=== PATIENT | female | born 1985 | race American Indian/Alaskan Native ===

== ENCOUNTER 2019-04-27 15:46 | Emergency (ER) | payer MEDICAID, SELFPAY ==
[2019-04-27 15:44] VITALS: BP 187/122; PULSE 162; RESP 24; TEMP 37.7; O2SAT 97
[2019-04-27 16:24] LABS: Add Manual Diff / Slide Review NO; Basophils Absolute Auto 100 /uL (0-100); Basophils Percent Auto 0.5 % (0-2); Eosinophils Absolute Auto 0 /uL (0-450); Eosinophils Percent Auto 0.3 % (2-4); Hematocrit 50.8 % (36-46); Hemoglobin 17.4 g/dL (12.0-16.0); Lymphocytes Absolute Auto 1200 /uL (1100-4500); Lymphocytes Percent Auto 10.5 % (25-40); Mean Corpuscular HGB Conc 34.2 % (30-36); Mean Corpuscular Hemoglobin 32.1 PG (26-34); Mean Corpuscular Volume 93.8 fL (80-100); Monocytes Absolute Auto 800 /uL (0-900); Monocytes Percent Auto 7.3 % (3-14); Neutrophils Absolute Auto 9100 /uL (1500-7000); Neutrophils Percent Auto 81.4 % (50-75); Platelet Count 266 X10^3/uL (150-400); Red Blood Cell Count 5.42 X10^6/uL (4.0-5.2); White Blood Cell Count 11.1 X10^3/uL (4.5-11.0)
[2019-04-27 16:39] LABS: Lithium < 0.2 mmol/L (0.6-1.2)
[2019-04-27 16:43] LABS: Prothrombin Time 11.3 SECONDS (10.1-12.7)
[2019-04-27 16:45] LABS: Acetaminophen < 10 ug/mL (10-30); Alanine Aminotransferase 217 IU/L (9-52); Albumin Globulin Ratio 1.5 (1.0-2.8); Alkaline Phosphatase 121 U/L (38-126); Aspartate Aminotransferase 270 IU/L (14-36); BUN Creatinine Ratio 6.3 (6-22); Bilirubin Total 2.1 mg/dL (0.2-1.3); Blood Urea Nitrogen 5 mg/dL (7-17); Carbon Dioxide 21 mmol/L (22-32); Chloride 100 mmol/L (98-107); Estimated Glomerular Filt Rate > 60.0 mL/min (>60); Ethanol (ETOH) < 10 mg/dL; Globulin 3.4 g/dL (1.7-4.1); Glucose 128 mg/dL (70-100); HEMOLYSIS < 15 (0-50); PTT Partial Thromboplastin Tim 32 SECONDS (26.4-36.2); Potassium 3.1 mmol/L (3.4-5.1); Salicylate < 1.0 mg/dL (<20); Sodium 139 mmol/L (137-145); Total Protein 8.4 g/dL (6.3-8.2)
[2019-04-27 16:46] LABS: Phenytoin / Dilantin < 3.0 ug/mL (10-20)
[2019-04-27 16:51] LABS: Lactate (Lactic Acid) 4.2 mmol/L (0.7-2.1)
--- NOTE | 2019-04-27 16:55 | PC.NURSE ---
lactate level received via phone call from amber at lab, lactate level 4.5, practitioner and primary nurse notified
[2019-04-27] MEDS: SODIUM CHLORIDE 0.9% 1,000 ML 150 ML IV (17:07)
[2019-04-27 17:13] LABS: Thyroid Stimulating Hormone 1.61 uIU/mL (0.47-4.68)
[2019-04-27] MEDS: POTASSIUM CHLORIDE 20 MEQ/15 ML UDC 40 MEQ PO (17:13)
[2019-04-27] MEDS: LORazepam 2 MG/ML INJ 1 MG IV (17:13)
--- NOTE | 2019-04-27 17:15 | ED_ITS ---
HPI - Psych <Edvin LauMAHNAZ - Last Filed: 04/27/19 23:28> General Chief Complaint: Psychiatric Symptoms Stated Complaint: Involuntary Time Seen by Provider: 04/27/19 15:51 Source: police Mode of arrival: Ambulatory Limitations: altered mental status History of Present Illness HPI Narrative: This is a 33-year-old female who was brought in while handcuffed by [employer] officers for an evaluation with altered mental status. [employer] was called by the patient's neighbor after hearing patient is screaming non- sensible comments and found her two young children running around unattended. Upon patient's arrival to room 13, found patient pacing around in the room and mumbling, I don't know what to do and appears to be she was having a conversation or having a visual and/or auditory hallucinations, patient told to triage and primary RNs that she would like to drink and to be in [place] [employer]. Patient denied taking other drugs or alcohol ingestions but stated to the police surgeon about taking Gabapentine for the chronic back pain. Otherwise, she does not answer to the questions. According to the patient's roommate/friend, this is out of her characteristics. Related Data Home Medications Medication Instructions Recorded Confirmed Unobtainable 04/27/19 04/27/19 Allergies Allergy/AdvReac Type Severity Reaction Status Date / Time No Known Drug Allergies Allergy Verified 04/27/19 21:13 Review of Systems <Edvin LauMAHNAZ - Last Filed: 04/27/19 23:28> Review of Systems Narrative: General: Denies fever, chills, fatigue, malaise, sweats. HEENT: Denies sinus pain, ear pain, sore throat, difficulty swallowing, dizziness. Respiratory: Denies dyspnea, cough, wheezing, hemoptysis, sputum. Cardiovascular: Denies chest pain, palpitations, orthopnea, edema. Gastrointestinal: Denies nausea, vomiting, abdominal pain, diarrhea, constipation, melena. : Denies dysuria, frequency, incontinence, hematuria, urinary retention. Musculoskeletal: Denies weakness, joint pain or bony pain. Skin: Denies rash, skin lesions, or other. Neurologic: Denies weakness, headache, numbness, change in speech, confusion, seizures, incoordination. Psychiatric: Auditory and visual hallucination. Has not been sleeping for last a few days due to stress. Reports history of anxiety and depression. 12-point review of systems is negative except for those stated above. PFSH <MAHNAZ Brumfield - Last Filed: 04/27/19 23:28> Medical History Anxiety (Acute) Back pain (Acute) Depression (Acute) Exam <MAHNAZ Brumfield - Last Filed: 04/27/19 23:28> Narrative Exam Narrative: GEN: Patient and pacing around the room and guarding. Head: Normal cephalic, atraumatic. No scalp or temporal tenderness, palpable mass or rash. EYES: Pupils are equal 5mm, round, and reactive to light and accommodation. Extraocular muscles are intact bilaterally. There is no subconjunctival hemorrhage, exudate and sclera non-icteric. Neck: Trachea in midline. No JVD, non-tender without lymphadenopathy. No masses or thyroid megaly. Supple, non-tender and no meningeal signs. CARDIAC: Normal regular rate and rhythm without murmurs, gallops, or rubs. No chest wall tenderness. No peripheral edema, cyanosis or pallor. Capillary refill is less than 2 seconds. RESPIRATORY: Lungs are cleat to auscultate bilaterally. No cough, wheezes, rales, or rhonchi. No stridor, respiratory distress, increase work of breathing, or accessary muscle used. ABD: Abdomen soft, nontender and non-distended. No guarding or rebound tenderness to palpate. Bowel sounds are normal in all 4 quadrants. There is no palpable masses or organomegaly. EXT: Full painless ROM of all extremities with no loss of sensation, strength, effusion or edema. SKIN: Warm, dry, flushed appearance. No erythema, lesions or rash over visible areas. BACK: Nontender without deformity or crepitance. No flank tenderness. NEUROLOGICAL: Sensation and motor function intact bilaterally. No facial droops, dysphasia. PSYCHIATRIC: Appears to be having auditory and visual hallucinations. Paranoid and pacing around the room. Initial Vital Signs Initial Vital Signs: Vital Signs Temperature 99.8 F H 04/27/19 15:44 Pulse Rate 162 H 04/27/19 15:44 Respiratory Rate 24 04/27/19 15:44 Blood Pressure 187/122 H 04/27/19 15:44 Pulse Oximetry 97 04/27/19 15:44 <Jonny Archer DO - Last Filed: 05/05/19 00:07> Initial Vital Signs Initial Vital Signs: Vital Signs Temperature 99.8 F H 04/27/19 15:44 Pulse Rate 162 H 04/27/19 15:44 Respiratory Rate 24 04/27/19 15:44 Blood Pressure 187/122 H 04/27/19 15:44 Pulse Oximetry 97 04/27/19 15:44 Course <MAHNAZ Brumfield - Last Filed: 04/27/19 23:28> Orders Ordered: Discontinued Medications Acetaminophen (Tylenol) 650 mg PO NOW ONE Stop: 04/27/19 23:01 Last Admin: 04/27/19 23:07 Dose: 650 mg Documented by: KATIE Sodium Chloride (Normal Saline 0.9%) 1,000 mls @ 150 mls/hr IV CONT ALINE Last Admin: 04/27/19 17:07 Dose: 150 mls/hr Documented by: KATIE Ibuprofen (Advil) 800 mg PO NOW ONE Stop: 04/27/19 23:01 Last Admin: 04/27/19 23:08 Dose: 800 mg Documented by: KATIE Lorazepam (Ativan) 1 mg IV PRN PRN PRN Reason: Agitation Last Admin: 04/27/19 17:13 Dose: 1 mg Documented by: KATIE Lorazepam (Ativan) 1 mg PO NOW ONE Stop: 04/27/19 22:54 Last Admin: 04/27/19 23:08 Dose: 1 mg Documented by: KATIE Nicotine (Nicoderm) 14 mg TOP NOW ONE Stop: 04/27/19 20:54 Last Admin: 04/27/19 21:13 Dose: 14 mg Documented by: KATIE Potassium Chloride (Potassium Chloride) 40 meq PO NOW ONE Stop: 04/27/19 17:11 Last Admin: 04/27/19 17:13 Dose: 40 meq Documented by: KATIE Vital Signs Vital signs: Vital Signs - 8 hr 04/27/19 15:44 04/27/19 17:31 04/27/19 18:53 Temperature 99.8 F H 99.8 F H Pulse Rate 162 H 111 H 108 H Respiratory Rate 24 18 17 Blood Pressure 187/122 H Blood Pressure [Right Arm] 158/109 H 128/78 Pulse Oximetry 97 98 95 <Jonny Archer DO - Last Filed: 05/05/19 00:07> Orders Ordered: Discontinued Medications Acetaminophen (Tylenol) 650 mg PO NOW ONE Stop: 04/27/19 23:01 Last Admin: 04/27/19 23:07 Dose: 650 mg Documented by: KATIE Sodium Chloride (Normal Saline 0.9%) 1,000 mls @ 150 mls/hr IV CONT ALINE Last Admin: 04/27/19 17:07 Dose: 150 mls/hr Documented by: KATIE Ibuprofen (Advil) 800 mg PO NOW ONE Stop: 04/27/19 23:01 Last Admin: 04/27/19 23:08 Dose: 800 mg Documented by: KAITE Lorazepam (Ativan) 1 mg IV PRN PRN PRN Reason: Agitation Last Admin: 04/27/19 17:13 Dose: 1 mg Documented by: KATIE Lorazepam (Ativan) 1 mg PO NOW ONE Stop: 04/27/19 22:54 Last Admin: 04/27/19 23:08 Dose: 1 mg Documented by: KATIE Nicotine (Nicoderm) 14 mg TOP NOW ONE Stop: 04/27/19 20:54 Last Admin: 04/27/19 21:13 Dose: 14 mg Documented by: KATIE Potassium Chloride (Potassium Chloride) 40 meq PO NOW ONE Stop: 04/27/19 17:11 Last Admin: 04/27/19 17:13 Dose: 40 meq Documented by: KATIE Vital Signs Vital signs: Vital Signs - 8 hr 04/27/19 15:44 04/27/19 17:31 04/27/19 18:53 Temperature 99.8 F H 99.8 F H Pulse Rate 162 H 111 H 108 H Respiratory Rate 24 18 17 Blood Pressure 187/122 H Blood Pressure [Right Arm] 158/109 H 128/78 Pulse Oximetry 97 98 95 MDM - Psych <MAHNAZ Brumfield - Last Filed: 04/27/19 23:28> Differential Diagnosis Differential diagnosis: Likely acute psychosis, bipolar disorder, depression and other Medical Records Attestation: I reviewed the patient's medical records. Lab Data Attestation: I reviewed the patient's lab results. Result diagrams: 04/27/19 16:10 04/27/19 16:10 Labs: Lab Results 04/27/19 04/27/19 04/27/19 Range/Units 16:10 16:10 16:10 WBC 11.1 H (4.5-11.0) X10^3/uL RBC 5.42 H (4.0-5.2) X10^6/uL Hgb 17.4 H (12.0-16.0) g/dL Hct 50.8 H (36-46) % MCV 93.8 (80-100) fL MCH 32.1 (26-34) PG MCHC 34.2 (30-36) % RDW 13.0 (11.6-14.8) % Plt Count 266 (150-400) X10^3/uL Neut % (Auto) 81.4 H (50-75) % Lymph % (Auto) 10.5 L (25-40) % [place] % (Auto) 7.3 (3-14) % Eos % (Auto) 0.3 L (2-4) % Baso % (Auto) 0.5 (0-2) % Neut # (Auto) 9100 H (6168-6284) /uL Lymph # (Auto) 1200 (3353-1552) /uL [place] # (Auto) 800 (0-900) /uL Eos # (Auto) 0 (0-450) /uL Baso # (Auto) 100 (0-100) /uL PT (10.1-12.7) SECONDS INR (0.9-1.3) APTT (26.4-36.2) SECONDS Sodium 139 (137-145) mmol/L Potassium 3.1 L (3.4-5.1) mmol/L Chloride 100 (98-107) mmol/L Carbon Dioxide 21 L (22-32) mmol/L BUN 5 L (7-17) mg/dL Creatinine 0.80 (0.52-1.04) mg/dL Estimated GFR > 60.0 (>60) mL/min BUN/Creatinine Ratio 6.3 (6-22) Glucose 128 H (70-100) mg/dL Lactate (0.7-2.1) mmol/L Calcium 10.0 (8.4-10.2) mg/dL Total Bilirubin 2.1 H (0.2-1.3) mg/dL AST 270 H (14-36) IU/L ALT 217 H (9-52) IU/L Alkaline Phosphatase 121 (38-126) U/L Troponin I (0.01-0.034) ng/mL Total Protein 8.4 H (6.3-8.2) g/dL Albumin 5.0 (3.5-5.0) g/dL Globulin 3.4 (1.7-4.1) g/dL Albumin/Globulin Ratio 1.5 (1.0-2.8) Procalcitonin (<0.5) ng/mL TSH 1.61 (0.47-4.68) uIU/mL Prolactin (3.0-18.6) ng/mL Urine Color Urine Appearance Urine pH (4.5-8.0) Ur Specific [place] (1.000-1.035) Urine Protein (Negative) Urine Glucose (UA) (Negative) g/dL Urine Ketones (NEGATIVE) Urine Occult Blood (Negative) Urine Nitrate (Negative) Urine Bilirubin (NEGATIVE) Urine Ictotest (Negative) Urine Urobilinogen (0.2) E.U./dL Ur Leukocyte Esterase (NEGATIVE) Urine RBC (0-5/HPF) Urine WBC (0-5/HPF) Ur Squamous Epith Cells (0-5/HPF) Amorphous Sediment Urine Bacteria (None) Granular Casts (None) Urine Mucus (Negative) Ur Culture Indicated? Salicylates < 1.0 (<20) mg/dL Urine Opiates Screen (Negative) POC Urine Buprenorphine (Negative) U Morph 300 ng/mL cutoff (Negative) Ur Oxycodone Screen (Negative) Urine Methadone Screen (Negative) Acetaminophen < 10 L (10-30) ug/mL Ur Barbiturates Screen (Negative) Phenytoin < 3.0 L (10-20) ug/mL Total Valproic Acid (50.0-100.0) mg/L Carbamazepine (4.0-12.0) mg/L U Tricyclic Antidepress (Negative) Ur Phencyclidine Scrn (Negative) Ur Amphetamines Screen (Negative) U Methamphetamines Scrn (Negative) Ur MDMA Scrn (Ecstasy) (Negative) U Benzodiazepines Scrn (Negative) [place] < 0.2 L (0.6-1.2) mmol/L Urine Cocaine Screen (Negative) U Marijuana (THC) Screen (Negative) Ethyl Alcohol < 10 ( - 10) mg/dL 04/27/19 04/27/19 04/27/19 Range/Units 16:10 16:10 16:10 WBC (4.5-11.0) X10^3/uL RBC (4.0-5.2) X10^6/uL Hgb (12.0-16.0) g/dL Hct (36-46) % MCV (80-100) fL MCH (26-34) PG MCHC (30-36) % RDW (11.6-14.8) % Plt Count (150-400) X10^3/uL Neut % (Auto) (50-75) % Lymph % (Auto) (25-40) % [place] % (Auto) (3-14) % Eos % (Auto) (2-4) % Baso % (Auto) (0-2) % Neut # (Auto) (9479-4662) /uL Lymph # (Auto) (2538-1315) /uL [place] # (Auto) (0-900) /uL Eos # (Auto) (0-450) /uL Baso # (Auto) (0-100) /uL PT 11.3 (10.1-12.7) SECONDS INR 1.0 (0.9-1.3) APTT 32 (26.4-36.2) SECONDS Sodium (137-145) mmol/L Potassium (3.4-5.1) mmol/L Chloride (98-107) mmol/L Carbon Dioxide (22-32) mmol/L BUN (7-17) mg/dL Creatinine (0.52-1.04) mg/dL Estimated GFR (>60) mL/min BUN/Creatinine Ratio (6-22) Glucose (70-100) mg/dL Lactate (0.7-2.1) mmol/L Calcium (8.4-10.2) mg/dL Total Bilirubin (0.2-1.3) mg/dL AST (14-36) IU/L ALT (9-52) IU/L Alkaline Phosphatase (38-126) U/L Troponin I (0.01-0.034) ng/mL Total Protein (6.3-8.2) g/dL Albumin (3.5-5.0) g/dL Globulin (1.7-4.1) g/dL Albumin/Globulin Ratio (1.0-2.8) Procalcitonin (<0.5) ng/mL TSH (0.47-4.68) uIU/mL Prolactin (3.0-18.6) ng/mL Urine Color Urine Appearance Urine pH (4.5-8.0) Ur Specific [place] (1.000-1.035) Urine Protein (Negative) Urine Glucose (UA) (Negative) g/dL Urine Ketones (NEGATIVE) Urine Occult Blood (Negative) Urine Nitrate (Negative) Urine Bilirubin (NEGATIVE) Urine Ictotest (Negative) Urine Urobilinogen (0.2) E.U./dL Ur Leukocyte Esterase (NEGATIVE) Urine RBC (0-5/HPF) Urine WBC (0-5/HPF) Ur Squamous Epith Cells (0-5/HPF) Amorphous Sediment Urine Bacteria (None) Granular Casts (None) Urine Mucus (Negative) Ur Culture Indicated? Salicylates (<20) mg/dL Urine Opiates Screen (Negative) POC Urine Buprenorphine (Negative) U Morph 300 ng/mL cutoff (Negative) Ur Oxycodone Screen (Negative) Urine Methadone Screen (Negative) Acetaminophen (10-30) ug/mL Ur Barbiturates Screen (Negative) Phenytoin (10-20) ug/mL Total Valproic Acid < 12.5 L (50.0-100.0) mg/L Carbamazepine < 2.0 L (4.0-12.0) mg/L U Tricyclic Antidepress (Negative) Ur Phencyclidine Scrn (Negative) Ur Amphetamines Screen (Negative) U Methamphetamines Scrn (Negative) Ur MDMA Scrn (Ecstasy) (Negative) U Benzodiazepines Scrn (Negative) [place] (0.6-1.2) mmol/L Urine Cocaine Screen (Negative) U Marijuana (THC) Screen (Negative) Ethyl Alcohol ( - 10) mg/dL 04/27/19 04/27/19 04/27/19 Range/Units 16:10 16:10 16:10 WBC (4.5-11.0) X10^3/uL RBC (4.0-5.2) X10^6/uL Hgb (12.0-16.0) g/dL Hct (36-46) % MCV (80-100) fL MCH (26-34) PG MCHC (30-36) % RDW (11.6-14.8) % Plt Count (150-400) X10^3/uL Neut % (Auto) (50-75) % Lymph % (Auto) (25-40) % [place] % (Auto) (3-14) % Eos % (Auto) (2-4) % Baso % (Auto) (0-2) % Neut # (Auto) (9505-9837) /uL Lymph # (Auto) (5518-5355) /uL [place] # (Auto) (0-900) /uL Eos # (Auto) (0-450) /uL Baso # (Auto) (0-100) /uL PT (10.1-12.7) SECONDS INR (0.9-1.3) APTT (26.4-36.2) SECONDS Sodium (137-145) mmol/L Potassium (3.4-5.1) mmol/L Chloride (98-107) mmol/L Carbon Dioxide (22-32) mmol/L BUN (7-17) mg/dL Creatinine (0.52-1.04) mg/dL Estimated GFR (>60) mL/min BUN/Creatinine Ratio (6-22) Glucose (70-100) mg/dL Lactate 4.2 H* (0.7-2.1) mmol/L Calcium (8.4-10.2) mg/dL Total Bilirubin (0.2-1.3) mg/dL AST (14-36) IU/L ALT (9-52) IU/L Alkaline Phosphatase (38-126) U/L Troponin I < 0.012 (0.01-0.034) ng/mL Total Protein (6.3-8.2) g/dL Albumin (3.5-5.0) g/dL Globulin (1.7-4.1) g/dL Albumin/Globulin Ratio (1.0-2.8) Procalcitonin < 0.05 (<0.5) ng/mL TSH (0.47-4.68) uIU/mL Prolactin 17.0 (3.0-18.6) ng/mL Urine Color Urine Appearance Urine pH (4.5-8.0) Ur Specific [place] (1.000-1.035) Urine Protein (Negative) Urine Glucose (UA) (Negative) g/dL Urine Ketones (NEGATIVE) Urine Occult Blood (Negative) Urine Nitrate (Negative) Urine Bilirubin (NEGATIVE) Urine Ictotest (Negative) Urine Urobilinogen (0.2) E.U./dL Ur Leukocyte Esterase (NEGATIVE) Urine RBC (0-5/HPF) Urine WBC (0-5/HPF) Ur Squamous Epith Cells (0-5/HPF) Amorphous Sediment Urine Bacteria (None) Granular Casts (None) Urine Mucus (Negative) Ur Culture Indicated? Salicylates (<20) mg/dL Urine Opiates Screen (Negative) POC Urine Buprenorphine (Negative) U Morph 300 ng/mL cutoff (Negative) Ur Oxycodone Screen (Negative) Urine Methadone Screen (Negative) Acetaminophen (10-30) ug/mL Ur Barbiturates Screen (Negative) Phenytoin (10-20) ug/mL Total Valproic Acid (50.0-100.0) mg/L Carbamazepine (4.0-12.0) mg/L U Tricyclic Antidepress (Negative) Ur Phencyclidine Scrn (Negative) Ur Amphetamines Screen (Negative) U Methamphetamines Scrn (Negative) Ur MDMA Scrn (Ecstasy) (Negative) U Benzodiazepines Scrn (Negative) [place] (0.6-1.2) mmol/L Urine Cocaine Screen (Negative) U Marijuana (THC) Screen (Negative) Ethyl Alcohol ( - 10) mg/dL 04/27/19 04/27/19 04/27/19 Range/Units 16:33 16:33 19:15 WBC (4.5-11.0) X10^3/uL RBC (4.0-5.2) X10^6/uL Hgb (12.0-16.0) g/dL Hct (36-46) % MCV (80-100) fL MCH (26-34) PG MCHC (30-36) % RDW (11.6-14.8) % Plt Count (150-400) X10^3/uL Neut % (Auto) (50-75) % Lymph % (Auto) (25-40) % [place] % (Auto) (3-14) % Eos % (Auto) (2-4) % Baso % (Auto) (0-2) % Neut # (Auto) (3221-3318) /uL Lymph # (Auto) (5415-8641) /uL [place] # (Auto) (0-900) /uL Eos # (Auto) (0-450) /uL Baso # (Auto) (0-100) /uL PT (10.1-12.7) SECONDS INR (0.9-1.3) APTT (26.4-36.2) SECONDS Sodium (137-145) mmol/L Potassium (3.4-5.1) mmol/L Chloride (98-107) mmol/L Carbon Dioxide (22-32) mmol/L BUN (7-17) mg/dL Creatinine (0.52-1.04) mg/dL Estimated GFR (>60) mL/min BUN/Creatinine Ratio (6-22) Glucose (70-100) mg/dL Lactate 0.7 (0.7-2.1) mmol/L Calcium (8.4-10.2) mg/dL Total Bilirubin (0.2-1.3) mg/dL AST (14-36) IU/L ALT (9-52) IU/L Alkaline Phosphatase (38-126) U/L Troponin I (0.01-0.034) ng/mL Total Protein (6.3-8.2) g/dL Albumin (3.5-5.0) g/dL Globulin (1.7-4.1) g/dL Albumin/Globulin Ratio (1.0-2.8) Procalcitonin (<0.5) ng/mL TSH (0.47-4.68) uIU/mL Prolactin (3.0-18.6) ng/mL Urine Color Yellow Urine Appearance Cloudy Urine pH 5.0 (4.5-8.0) Ur Specific [place] 1.020 (1.000-1.035) Urine Protein 2+ H (Negative) Urine Glucose (UA) Negative (Negative) g/dL Urine Ketones Trace H (NEGATIVE) Urine Occult Blood Trace-intact (Negative) Urine Nitrate Negative (Negative) Urine Bilirubin 1+ H (NEGATIVE) Urine Ictotest Positive H (Negative) Urine Urobilinogen 0.2 (0.2) E.U./dL Ur Leukocyte Esterase 2+ H (NEGATIVE) Urine RBC 0-1/hpf (0-5/HPF) Urine WBC 10-30/hpf H (0-5/HPF) Ur Squamous Epith Cells 10-30 /hpf H (0-5/HPF) Amorphous Sediment 1+ Urine Bacteria Moderate (10-30) H (None) Granular Casts 1-5/lpf (None) Urine Mucus 2+ H (Negative) Ur Culture Indicated? Culture not indicate Salicylates (<20) mg/dL Urine Opiates Screen Negative (Negative) POC Urine Buprenorphine Negative (Negative) U Morph 300 ng/mL cutoff Negative (Negative) Ur Oxycodone Screen Negative (Negative) Urine Methadone Screen Negative (Negative) Acetaminophen (10-30) ug/mL Ur Barbiturates Screen Negative (Negative) Phenytoin (10-20) ug/mL Total Valproic Acid (50.0-100.0) mg/L Carbamazepine (4.0-12.0) mg/L U Tricyclic Antidepress Negative (Negative) Ur Phencyclidine Scrn Negative (Negative) Ur Amphetamines Screen Negative (Negative) U Methamphetamines Scrn Negative (Negative) Ur MDMA Scrn (Ecstasy) Negative (Negative) U Benzodiazepines Scrn Negative (Negative) [place] (0.6-1.2) mmol/L Urine Cocaine Screen Negative (Negative) U Marijuana (THC) Screen Positive H (Negative) Ethyl Alcohol ( - 10) mg/dL Point of Care Testing Test Results Negative Imaging Data CT-Head: Radiologist's impression: [place] [address] CT Scan Report Signed Patient: Rodger Mcdonough#: [id number] : 1985Acct:[id number] Age/Sex: 33 / FDate of Service: 04/27/19 Loc: ED Accession Number: [id number] Procedure: CT head/brain wo con Ordering Provider: Edvin Lau PROCEDURE: CT HEAD/BRAIN WO CON INDICATIONS: altered mental status TECHNIQUE: Noncontrast 4.5 mm thick angled axial sections acquired from the foramen magnum to the vertex, with coronal and sagittal reformats. For radiation dose reduction, the following was used: automated exposure control, adjustment of mA and/or kV according to patient size. COMPARISON: None. FINDINGS: Image quality: Excellent. CSF spaces: Basal cisterns are patent. No extra-axial fluid collections. Ventricles are normal in size and shape. Brain: No midline shift. No intracranial masses or hemorrhage. Solomon-white matter interface is normal. Skull and face: Calvarium and visualized facial bones are intact, without suspicious lesions. Sinuses: Visualized sinuses and mastoids are clear. IMPRESSION: No acute intracranial abnormality. Dictated by: Roberto Carlos Diop M.D. on 04/27/2019 at 19:01 Approved by: Roberto Carlos Diop M.D. on 04/27/2019 at 19:01 US - abdomen: Radiologist's impression: [place] [address] Ultrasound Report Signed Patient: Rodger Mcdonouhg#: [id number] : 1985Acct:[id number] Age/Sex: 33 / FDate of Service: 04/27/19 Loc: ED Accession Number: [id number] Procedure: US abdomen limited Ordering Provider: Edvin Lau PROCEDURE: US ABDOMEN LIMITED INDICATIONS: ELEVATED LFTS; FEVER; ALTERED MENTAL STATUS TECHNIQUE: Real-time scanning was performed of the abdominal and retroperitoneal organs, [facility] image documentation. COMPARISON: None. FINDINGS: Liver: Liver is normal in size and homogeneously increased in echotexture. Gallbladder: Within normal limits Biliary ducts: Intrahepatic bile ducts are non-dilated. Extrahepatic bile duct caliber measures 6.8 mm. Normal is 6-7 mm or less in diameter, or 10 mm or less post-cholecystectomy. Pancreas: Not well-seen secondary to bowel gas. IMPRESSION: No acute process. Hepatic steatosis. Dictated by: Roberto Carlos Diop M.D. on 04/27/2019 at 20:41 Approved by: Roberto Carlos Diop M.D. on 04/27/2019 at 20:42 ECG Data Attestation: I personally reviewed and interpreted this ECG as follows: Prior ECG tracings: not available for review Interpretation: Sinus tachycardia rate at 133. No obvious ST elevation/depression. MDM Narrative Medical decision making narrative: This is a 33-year-old female, brought in by [facility] police officers with altered mental status. Initially, it was difficult to assess patient's mentation due to patient is not answering to questions and pacing around the room and uncooperative with testing procedures. The patient was initially restrained for violent behaviors for self and towards others and was unable to do complete medical screening studies for acute altered mental status, tachycardia up to 150-160's BPM with hypertension, moderately elevated temperature. Initial blood test showed mild leukocytosis with elevated H/H indicating that the patient may be dehydrated. Patient was treated with 1 L of normal saline via IV. Lactic acidosis was elevated as 4.2 with wanda procalc itocin. Mildly decreased potassium at 3.1 which has been replaced with oral potassium 40 mEq. Liver function tests were moderately elevated. Ultrasound of abdomen was done and it showed hepatic steatosis, fatty liver. There was no indication of cholecystitis or gallstones at this time. Head CT was obtained without any acute findings. During the workup, patient was able to answer some questions there was asked by her primary care nurse. 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 She also has history of anxiety and depression and back pain. She takes gabapentin for back pain routinely. In the past, patient had experience hallucinations but did not want to elaborate on this. UDS showed positive for THC but no other drugs. UA test appears to be contaminated sample and it is being cultured for infection. After patient was medicated with Ativan and redirections, patient was able to follow directions and cooperative. Four point restraints was released at 1903 completely after trials one point at a time. Patient was evaluated frequently by primary care nurse and myself appears. Patient became alert and oriented x3 and her vital signs has improved. Second lactate was obtained and indicated normal finding. Blood culture were obtained due to elevated lactate. Patient was able to tolerate p.o. fluids and snacks. Patient also medicated with ni cotine patch. Her 2 sons are taken by CPS at this time and contact number has been left with patient's belongings and informed the patient of this. She became tearful when she found out and states I just wanna go home. Patient denies suicidal ideation or homicidal ideation at this time. Patient does not answer questions about hallucination to this clinician. Patient verbally contracted safety at this time. Patient was consulted with the hospital manager social services, Jennifer, and she was evaluated several times by Jennifer. DCR, Javier, has arrived to ED at 2200 for an evaluation. Patient was evaluated by ESTEBAN solis and suggested that patient is probably better to follow up with OT ([facility]) the following day and the patient will be provided with resources and patient agrees with treatment plan. Patient medicated with Ativan 1 mg p.o. prior DC to home to help her with sleep and restful night. Before dc to home, the patient c/o right wrist mild swelling, erythema and discomfort and discoloration, some tingling to her fingers and discomfort on L wrist from restraint use. CMS was intact in bilateral hands with good bilateral radial pulses. Patient offered x-ray test on right wrist but declines at this time due to patient is able to move her wrist without difficulty. Patient offered ice pack and advised to use next couple of days and to use [id number] Tylenol and/or Motrin as needed for discomfort and inflammation. Unfortunately, explained to patient that the restrained was applied to help protect patient from self-harming unfortunately and patient verbalized the understanding. <Jonny Archer, DO - Last Filed: 05/05/19 00:07> Lab Data Labs: Lab Results 04/27/19 04/27/19 04/27/19 Range/Units 16:10 16:10 16:10 WBC 11.1 H (4.5-11.0) X10^3/uL RBC 5.42 H (4.0-5.2) X10^6/uL Hgb 17.4 H (12.0-16.0) g/dL Hct 50.8 H (36-46) % MCV 93.8 (80-100) fL MCH 32.1 (26-34) PG MCHC 34.2 (30-36) % RDW 13.0 (11.6-14.8) % Plt Count 266 (150-400) X10^3/uL Neut % (Auto) 81.4 H (50-75) % Lymph % (Auto) 10.5 L (25-40) % [place] % (Auto) 7.3 (3-14) % Eos % (Auto) 0.3 L (2-4) % Baso % (Auto) 0.5 (0-2) % Neut # (Auto) 9100 H (9060-0876) /uL Lymph # (Auto) 1200 (9776-7401) /uL [place] # (Auto) 800 (0-900) /uL Eos # (Auto) 0 (0-450) /uL Baso # (Auto) 100 (0-100) /uL PT (10.1-12.7) SECONDS INR (0.9-1.3) APTT (26.4-36.2) SECONDS Sodium 139 (137-145) mmol/L Potassium 3.1 L (3.4-5.1) mmol/L Chloride 100 (98-107) mmol/L Carbon Dioxide 21 L (22-32) mmol/L BUN 5 L (7-17) mg/dL Creatinine 0.80 (0.52-1.04) mg/dL Estimated GFR > 60.0 (>60) mL/min BUN/Creatinine Ratio 6.3 (6-22) Glucose 128 H (70-100) mg/dL Lactate (0.7-2.1) mmol/L Calcium 10.0 (8.4-10.2) mg/dL Total Bilirubin 2.1 H (0.2-1.3) mg/dL AST 270 H (14-36) IU/L ALT 217 H (9-52) IU/L Alkaline Phosphatase 121 (38-126) U/L Troponin I (0.01-0.034) ng/mL Total Protein 8.4 H (6.3-8.2) g/dL Albumin 5.0 (3.5-5.0) g/dL Globulin 3.4 (1.7-4.1) g/dL Albumin/Globulin Ratio 1.5 (1.0-2.8) Procalcitonin (<0.5) ng/mL TSH 1.61 (0.47-4.68) uIU/mL Prolactin (3.0-18.6) ng/mL Urine Color Urine Appearance Urine pH (4.5-8.0) Ur Specific [place] (1.000-1.035) Urine Protein (Negative) Urine Glucose (UA) (Negative) g/dL Urine Ketones (NEGATIVE) Urine Occult Blood (Negative) Urine Nitrate (Negative) Urine Bilirubin (NEGATIVE) Urine Ictotest (Negative) Urine Urobilinogen (0.2) E.U./dL Ur Leukocyte Esterase (NEGATIVE) Urine RBC (0-5/HPF) Urine WBC (0-5/HPF) Ur Squamous Epith Cells (0-5/HPF) Amorphous Sediment Urine Bacteria (None) Granular Casts (None) Urine Mucus (Negative) Ur Culture Indicated? Salicylates < 1.0 (<20) mg/dL Urine Opiates Screen (Negative) POC Urine Buprenorphine (Negative) U Morph 300 ng/mL cutoff (Negative) Ur Oxycodone Screen (Negative) Urine Methadone Screen (Negative) Acetaminophen < 10 L (10-30) ug/mL Ur Barbiturates Screen (Negative) Phenytoin < 3.0 L (10-20) ug/mL Total Valproic Acid (50.0-100.0) mg/L Carbamazepine (4.0-12.0) mg/L U Tricyclic Antidepress (Negative) Ur Phencyclidine Scrn (Negative) Ur Amphetamines Screen (Negative) U Methamphetamines Scrn (Negative) Ur MDMA Scrn (Ecstasy) (Negative) U Benzodiazepines Scrn (Negative) [place] < 0.2 L (0.6-1.2) mmol/L Urine Cocaine Screen (Negative) U Marijuana (THC) Screen (Negative) Ethyl Alcohol < 10 ( - 10) mg/dL 04/27/19 04/27/19 04/27/19 Range/Units 16:10 16:10 16:10 WBC (4.5-11.0) X10^3/uL RBC (4.0-5.2) X10^6/uL Hgb (12.0-16.0) g/dL Hct (36-46) % MCV (80-100) fL MCH (26-34) PG MCHC (30-36) % RDW (11.6-14.8) % Plt Count (150-400) X10^3/uL Neut % (Auto) (50-75) % Lymph % (Auto) (25-40) % [place] % (Auto) (3-14) % Eos % (Auto) (2-4) % Baso % (Auto) (0-2) % Neut # (Auto) (3183-4284) /uL Lymph # (Auto) (8739-5065) /uL [place] # (Auto) (0-900) /uL Eos # (Auto) (0-450) /uL Baso # (Auto) (0-100) /uL PT 11.3 (10.1-12.7) SECONDS INR 1.0 (0.9-1.3) APTT 32 (26.4-36.2) SECONDS Sodium (137-145) mmol/L Potassium (3.4-5.1) mmol/L Chloride (98-107) mmol/L Carbon Dioxide (22-32) mmol/L BUN (7-17) mg/dL Creatinine (0.52-1.04) mg/dL Estimated GFR (>60) mL/min BUN/Creatinine Ratio (6-22) Glucose (70-100) mg/dL Lactate (0.7-2.1) mmol/L Calcium (8.4-10.2) mg/dL Total Bilirubin (0.2-1.3) mg/dL AST (14-36) IU/L ALT (9-52) IU/L Alkaline Phosphatase (38-126) U/L Troponin I (0.01-0.034) ng/mL Total Protein (6.3-8.2) g/dL Albumin (3.5-5.0) g/dL Globulin (1.7-4.1) g/dL Albumin/Globulin Ratio (1.0-2.8) Procalcitonin (<0.5) ng/mL TSH (0.47-4.68) uIU/mL Prolactin (3.0-18.6) ng/mL Urine Color Urine Appearance Urine pH (4.5-8.0) Ur Specific [place] (1.000-1.035) Urine Protein (Negative) Urine Glucose (UA) (Negative) g/dL Urine Ketones (NEGATIVE) Urine Occult Blood (Negative) Urine Nitrate (Negative) Urine Bilirubin (NEGATIVE) Urine Ictotest (Negative) Urine Urobilinogen (0.2) E.U./dL Ur Leukocyte Esterase (NEGATIVE) Urine RBC (0-5/HPF) Urine WBC (0-5/HPF) Ur Squamous Epith Cells (0-5/HPF) Amorphous Sediment Urine Bacteria (None) Granular Casts (None) Urine Mucus (Negative) Ur Culture Indicated? Salicylates (<20) mg/dL Urine Opiates Screen (Negative) POC Urine Buprenorphine (Negative) U Morph 300 ng/mL cutoff (Negative) Ur Oxycodone Screen (Negative) Urine Methadone Screen (Negative) Acetaminophen (10-30) ug/mL Ur Barbiturates Screen (Negative) Phenytoin (10-20) ug/mL Total Valproic Acid < 12.5 L (50.0-100.0) mg/L Carbamazepine < 2.0 L (4.0-12.0) mg/L U Tricyclic Antidepress (Negative) Ur Phencyclidine Scrn (Negative) Ur Amphetamines Screen (Negative) U Methamphetamines Scrn (Negative) Ur MDMA Scrn (Ecstasy) (Negative) U Benzodiazepines Scrn (Negative) [place] (0.6-1.2) mmol/L Urine Cocaine Screen (Negative) U Marijuana (THC) Screen (Negative) Ethyl Alcohol ( - 10) mg/dL 04/27/19 04/27/19 04/27/19 Range/Units 16:10 16:10 16:10 WBC (4.5-11.0) X10^3/uL RBC (4.0-5.2) X10^6/uL Hgb (12.0-16.0) g/dL Hct (36-46) % MCV (80-100) fL MCH (26-34) PG MCHC (30-36) % RDW (11.6-14.8) % Plt Count (150-400) X10^3/uL Neut % (Auto) (50-75) % Lymph % (Auto) (25-40) % [place] % (Auto) (3-14) % Eos % (Auto) (2-4) % Baso % (Auto) (0-2) % Neut # (Auto) (0319-3904) /uL Lymph # (Auto) (2395-4596) /uL [place] # (Auto) (0-900) /uL Eos # (Auto) (0-450) /uL Baso # (Auto) (0-100) /uL PT (10.1-12.7) SECONDS INR (0.9-1.3) APTT (26.4-36.2) SECONDS Sodium (137-145) mmol/L Potassium (3.4-5.1) mmol/L Chloride (98-107) mmol/L Carbon Dioxide (22-32) mmol/L BUN (7-17) mg/dL Creatinine (0.52-1.04) mg/dL Estimated GFR (>60) mL/min BUN/Creatinine Ratio (6-22) Glucose (70-100) mg/dL Lactate 4.2 H* (0.7-2.1) mmol/L Calcium (8.4-10.2) mg/dL Total Bilirubin (0.2-1.3) mg/dL AST (14-36) IU/L ALT (9-52) IU/L Alkaline Phosphatase (38-126) U/L Troponin I < 0.012 (0.01-0.034) ng/mL Total Protein (6.3-8.2) g/dL Albumin (3.5-5.0) g/dL Globulin (1.7-4.1) g/dL Albumin/Globulin Ratio (1.0-2.8) Procalcitonin < 0.05 (<0.5) ng/mL TSH (0.47-4.68) uIU/mL Prolactin 17.0 (3.0-18.6) ng/mL Urine Color Urine Appearance Urine pH (4.5-8.0) Ur Specific [place] (1.000-1.035) Urine Protein (Negative) Urine Glucose (UA) (Negative) g/dL Urine Ketones (NEGATIVE) Urine Occult Blood (Negative) Urine Nitrate (Negative) Urine Bilirubin (NEGATIVE) Urine Ictotest (Negative) Urine Urobilinogen (0.2) E.U./dL Ur Leukocyte Esterase (NEGATIVE) Urine RBC (0-5/HPF) Urine WBC (0-5/HPF) Ur Squamous Epith Cells (0-5/HPF) Amorphous Sediment Urine Bacteria (None) Granular Casts (None) Urine Mucus (Negative) Ur Culture Indicated? Salicylates (<20) mg/dL Urine Opiates Screen (Negative) POC Urine Buprenorphine (Negative) U Morph 300 ng/mL cutoff (Negative) Ur Oxycodone Screen (Negative) Urine Methadone Screen (Negative) Acetaminophen (10-30) ug/mL Ur Barbiturates Screen (Negative) Phenytoin (10-20) ug/mL Total Valproic Acid (50.0-100.0) mg/L Carbamazepine (4.0-12.0) mg/L U Tricyclic Antidepress (Negative) Ur Phencyclidine Scrn (Negative) Ur Amphetamines Screen (Negative) U Methamphetamines Scrn (Negative) Ur MDMA Scrn (Ecstasy) (Negative) U Benzodiazepines Scrn (Negative) [place] (0.6-1.2) mmol/L Urine Cocaine Screen (Negative) U Marijuana (THC) Screen (Negative) Ethyl Alcohol ( - 10) mg/dL 04/27/19 04/27/19 04/27/19 Range/Units 16:33 16:33 19:15 WBC (4.5-11.0) X10^3/uL RBC (4.0-5.2) X10^6/uL Hgb (12.0-16.0) g/dL Hct (36-46) % MCV (80-100) fL MCH (26-34) PG MCHC (30-36) % RDW (11.6-14.8) % Plt Count (150-400) X10^3/uL Neut % (Auto) (50-75) % Lymph % (Auto) (25-40) % [place] % (Auto) (3-14) % Eos % (Auto) (2-4) % Baso % (Auto) (0-2) % Neut # (Auto) (9107-3811) /uL Lymph # (Auto) (0475-6397) /uL [place] # (Auto) (0-900) /uL Eos # (Auto) (0-450) /uL Baso # (Auto) (0-100) /uL PT (10.1-12.7) SECONDS INR (0.9-1.3) APTT (26.4-36.2) SECONDS Sodium (137-145) mmol/L Potassium (3.4-5.1) mmol/L Chloride (98-107) mmol/L Carbon Dioxide (22-32) mmol/L BUN (7-17) mg/dL Creatinine (0.52-1.04) mg/dL Estimated GFR (>60) mL/min BUN/Creatinine Ratio (6-22) Glucose (70-100) mg/dL Lactate 0.7 (0.7-2.1) mmol/L Calcium (8.4-10.2) mg/dL Total Bilirubin (0.2-1.3) mg/dL AST (14-36) IU/L ALT (9-52) IU/L Alkaline Phosphatase (38-126) U/L Troponin I (0.01-0.034) ng/mL Total Protein (6.3-8.2) g/dL Albumin (3.5-5.0) g/dL Globulin (1.7-4.1) g/dL Albumin/Globulin Ratio (1.0-2.8) Procalcitonin (<0.5) ng/mL TSH (0.47-4.68) uIU/mL Prolactin (3.0-18.6) ng/mL Urine Color Yellow Urine Appearance Cloudy Urine pH 5.0 (4.5-8.0) Ur Specific [place] 1.020 (1.000-1.035) Urine Protein 2+ H (Negative) Urine Glucose (UA) Negative (Negative) g/dL Urine Ketones Trace H (NEGATIVE) Urine Occult Blood Trace-intact (Negative) Urine Nitrate Negative (Negative) Urine Bilirubin 1+ H (NEGATIVE) Urine Ictotest Positive H (Negative) Urine Urobilinogen 0.2 (0.2) E.U./dL Ur Leukocyte Esterase 2+ H (NEGATIVE) Urine RBC 0-1/hpf (0-5/HPF) Urine WBC 10-30/hpf H (0-5/HPF) Ur Squamous Epith Cells 10-30 /hpf H (0-5/HPF) Amorphous Sediment 1+ Urine Bacteria Moderate (10-30) H (None) Granular Casts 1-5/lpf (None) Urine Mucus 2+ H (Negative) Ur Culture Indicated? Culture not indicate Salicylates (<20) mg/dL Urine Opiates Screen Negative (Negative) POC Urine Buprenorphine Negative (Negative) U Morph 300 ng/mL cutoff Negative (Negative) Ur Oxycodone Screen Negative (Negative) Urine Methadone Screen Negative (Negative) Acetaminophen (10-30) ug/mL Ur Barbiturates Screen Negative (Negative) Phenytoin (10-20) ug/mL Total Valproic Acid (50.0-100.0) mg/L Carbamazepine (4.0-12.0) mg/L U Tricyclic Antidepress Negative (Negative) Ur Phencyclidine Scrn Negative (Negative) Ur Amphetamines Screen Negative (Negative) U Methamphetamines Scrn Negative (Negative) Ur MDMA Scrn (Ecstasy) Negative (Negative) U Benzodiazepines Scrn Negative (Negative) [place] (0.6-1.2) mmol/L Urine Cocaine Screen Negative (Negative) U Marijuana (THC) Screen Positive H (Negative) Ethyl Alcohol ( - 10) mg/dL Point of Care Testing Test Results Negative Discharge Plan Departure Patient Disposition: Home Clinical Impression: Acute reaction to situational stress Altered mental status, unspecified Qualifiers: Altered mental status type: unspecified Qualified Code(s): R41.82 - Altered mental status, unspecified Discharge Date/Time: 04/27/19 23:27 Instructions: Understanding and Managing the Stress Response, DI for Altered Mental Status Activity Restrictions/Additional Instructions: You have been diagnosed with [altered mental possibly due to stress reaction and lack of sleep]. What to do: *Take your medications as directed. Please continue with her medication and there is no new medications has been prescribed. However, you have been medicated with Ativan to relax and help with sleep. * You will receive a phone call from [facility] tomorrow to follow up with you for an evaluation and to provide support. Please use OTC tylenol and/Motrin as needed for discomfort and swelling to wrists and ice pack that was provided for next a couple of days. I included a phone number to call to find a primary care physician. *Return to ED if you have any new, worsening, or concerning symptoms, such as [chest pain, breathing difficulty, unable to tolerate fluids, increasing pain/swelling/redness and tingling or numbness, weakness to wrists, suicidal ideation or homicidal ideation]. Prescriptions: No Action Unobtainable RF: 0 Referrals: [facility] [Outside] <Jonny Archer DO - Last Filed: 05/05/19 00:07> Sign Out Provider Sign Out Attestation: I was available for consultation during this patient's emergency department encounter
[2019-04-27 17:30] LABS: Appearance Urine UA CLOUDY; Bilirubin Urine UA 1+ (NEGATIVE); Color Urine UA YELLOW; Glucose Urine UA NEGATIVE (Negative); Ketones Urine UA TRACE (NEGATIVE); Leukocyte Esterase Urine UA 2+ (NEGATIVE); Nitrite Urine UA NEGATIVE (Negative); Occult Blood Urine UA TRACE-INTACT (Negative); Protein Urine UA 2+ (Negative); Urobilinogen Urine UA 0.2 E.U./dL (0.2)
--- NOTE | 2019-04-27 17:30 | DI.CT.S_ITS ---
PROCEDURE: CT HEAD/BRAIN WO CON INDICATIONS: altered mental status TECHNIQUE: Noncontrast 4.5 mm thick angled axial sections acquired from the foramen magnum to the vertex, with coronal and sagittal reformats. For radiation dose reduction, the following was used: automated exposure control, adjustment of mA and/or kV according to patient size. COMPARISON: None. FINDINGS: Image quality: Excellent. CSF spaces: Basal cisterns are patent. No extra-axial fluid collections. Ventricles are normal in size and shape. Brain: No midline shift. No intracranial masses or hemorrhage. Solomon-white matter interface is normal. Skull and face: Calvarium and visualized facial bones are intact, without suspicious lesions. Sinuses: Visualized sinuses and mastoids are clear. IMPRESSION: No acute intracranial abnormality. Dictated by: Roberto Carlos Diop M.D. on 04/27/2019 at 19:01 Approved by: Roberto Carlos Diop M.D. on 04/27/2019 at 19:01
[2019-04-27 17:31] VITALS: BP 158/109; PULSE 111; RESP 18; TEMP 37.7; O2SAT 98
[2019-04-27 17:31] LABS: Burprenorphine Negative (Negative); UR Morphine/Opiate cutoff 300 Negative (Negative); Urine Amphetamines Negative (Negative); Urine Barbiturates Negative (Negative); Urine Benzodiazepines Negative (Negative); Urine Cocaine Negative (Negative); Urine MDMA Negative (Negative); Urine Methadone Negative (Negative); Urine Methamphetamines Negative (Negative); Urine Morphine/Opi cutoff 2000 Negative (Negative); Urine Oxycodone Negative (Negative); Urine Phencyclidine Negative (Negative); Urine Tetrahydrocannabinol Positive (Negative); Urine Tricyclic Antidepressant Negative (Negative)
[2019-04-27 17:40] LABS: Ictotest Urine Positive (Negative)
[2019-04-27 17:41] LABS: Amorphous Sediment Urine 1+; Bacteria Urine Moderate (10-30); Granular Casts Urine 1-5/LPF; Mucus Urine 2+ (Negative); RBC Urine 0-1/HPF (0-5/HPF); Squamous Epithelial Cell Urine 10-30 /HPF (0-5/HPF); WBC Urine 10-30/HPF (0-5/HPF)
[2019-04-27 17:48] LABS: Troponin I < 0.012 ng/mL (0.01-0.034)
--- NOTE | 2019-04-27 17:49 | PC.NURSE ---
Social Work and RN at bedside. patient tearful, patient more willing to talk at this time.
[2019-04-27 18:38] LABS: Reflexed Lactate in 2 Hours Y
[2019-04-27 18:53] VITALS: BP 128/78; PULSE 108; RESP 17; O2SAT 95
--- NOTE | 2019-04-27 19:06 | PC.NURSE ---
Pt taken to CT with accompanied by this RUBBER GRINDER, ELIZABETH Gomez, and the security assistant. Pt was cooperative and calm with all instructions before and after scan. Pt requesting food and drink. Meal tray ordered at this time.
--- NOTE | 2019-04-27 19:10 | DI.US.S_ITS ---
PROCEDURE: US ABDOMEN LIMITED INDICATIONS: ELEVATED LFTS; FEVER; ALTERED MENTAL STATUS TECHNIQUE: Real-time scanning was performed of the abdominal and retroperitoneal organs, with image documentation. COMPARISON: None. FINDINGS: Liver: Liver is normal in size and homogeneously increased in echotexture. Gallbladder: Within normal limits Biliary ducts: Intrahepatic bile ducts are non-dilated. Extrahepatic bile duct caliber measures 6.8 mm. Normal is 6-7 mm or less in diameter, or 10 mm or less post-cholecystectomy. Pancreas: Not well-seen secondary to bowel gas. IMPRESSION: No acute process. Hepatic steatosis. Dictated by: Roberto Carlos Diop M.D. on 04/27/2019 at 20:41 Approved by: Roberto Carlos Diop M.D. on 04/27/2019 at 20:42
--- NOTE | 2019-04-27 19:10 | PC.NURSE ---
pt getting blood drawn by lab. She is calm and compliant at this time
--- NOTE | 2019-04-27 19:28 | PC.NURSE ---
Patient sleeping. Earlier in discussion with patient she was tearful. Reports she spoke to her roommate who told her the police took her children out of the home. I am not doing well with that reassurred the patient that they are safe and it is in their best interest at this point. Patient agreeable. Patient remains out of restraints with constant observation.
[2019-04-27 19:54] LABS: Procalcitonin < 0.05 ng/mL (<0.5)
[2019-04-27 19:58] LABS: Lactate 2HR (Lactic Acid Rflx) 0.7 mmol/L (0.7-2.1)
--- NOTE | 2019-04-27 20:17 | PC.NURSE ---
pt getting Abdominal US. Pt is calm and cooperative during procedure
--- NOTE | 2019-04-27 20:26 | CM.SWNOTE ---
ED Social Work Note Pt brought in to the ED by Joel MADDEN, already determined to be involuntary due to psychosis, combativeness, pt experiencing auditory and visual hallucinations. Pt also attempted to get into the team truck driver seat of the police car and was screaming that she was going to get away. Pt also was expressing that her name was God, and presented as completely disorganized. Pt was placed in 4-point restraints by PD. She has since cleared and is more oriented after receiving IV fluids. Children have been removed and are in CPS custody. NAILHEAD SETTER called [facility] and [facility] is being dispatched to coordinate ALEX placement. Discharge Planning/Care Management ED Crisis Response Assessment Start: 04/27/19 20:11 Freq: Status: Active Protocol: Document 04/27/19 20:11 [facility] (Rec: 04/27/19 20:26 [facility] [id number]) ED Crisis Response Assessment NAILHEAD SETTER Assessment Type Mental Health Reason for NAILHEAD SETTER Referral Assess acute mental health episode already deemed involuntary by Joel MADDEN. Referred by ED Provider Presenting Problem PD were called after several neighbors called to report pt screaming in the parking lot, appearing psychotic and completely out of control. Her 3 1/2 year old son was standing alone outside, older child's whereabouts initially not known. Police did take the kids into custody. Pt was experiencing both visual and auditory hallucinations, was combative and uncooperative. She was in 4-point restraints once contained in the ED. She made statements that her name was God, was not oriented to person/place/time, disorganized thoughts, dehydrated. She did clear up more after fluids were initiated, however still unable to provide consistent self-reporting. Mental health diagnosis No previous dx known. Pt states that nothing is making sense, and was able to share that she was feeling more anxious and not understanding what was going on in her head. [facility]/CMS check No Suicidal thoughts No Past Suicidal thoughts No Current Suicidal thoughts No Prior Suicide attempts No Current plan for self harm No Access to guns and weapons No Thoughts of harm to others No Past thoughts of harm to others No Current thoughts of harming others No Prior attempts to harm others No Current plan to harm others No Current Risk factors Marital and family difficulties Risk factor comments Pt was able to share that she is from her partner. She lives with her 2-children in an apartment with a roommate-Cristino. Relevant Medical History U/K Crisis Plan Once pt has been medically cleared, ED will call [facility] and request DCR dispatch for ALEX placement. Additional Comment D/c disposition is pending. ED Psychiatric Symptoms Assessment Start: 04/27/19 16:23 Freq: Status: Active Protocol: Document 04/27/19 16:05 [facility] (Rec: 04/27/19 16:55 [facility] [id number]) Psychiatric Symptoms Assessment Symptoms/Complaint Altered Mental Status Duration Intermittent History Of Same No Level of Consciousness Disoriented,Inappropriate, Restless Patient Orientation Name Patient Behavior/Mood Anxious,Crying/Tearful Ability to Follow Directions Poor Delusion Description Bizarre,Ideas of Reference, Paranoid Ideation Thought Process: Disorganized,Flight of ideas, Illogical Depressive Symptoms Back Pain,Changes in Appetite, Increased Anxiety,Increased Irritability,Insomnia Major Depressive Episode Yes Suicidal Ideation None Suicide Plan No Plan Homicidal Ideation None Nausea/Vomiting None Document 04/27/19 16:24 [facility] (Rec: 04/27/19 18:40 [facility] [id number]) Psychiatric Symptoms Assessment Symptoms/Complaint manic/psychotic Duration Changing Over Time History Of Same No Context Unknown Associated Psychiatric Symptoms Auditory Hallucinations,Racing Thoughts,Visual Hallucinations Associated Symptoms Confusion,Insomnia Details of Plan Patient arrives withdrawn initially not speaking. Began pacing in room rambling to self. I am losing my mind I am losing my mind. I am in a looney bin, I knew this was going to happen today Was speaking to the president at one point. Patient admits to visual and auditory hallucinations. Reports use of marajuana and vape pen with weed. States she hasn't been sleeping, asking for water and food because she hasn't eaten today too busy freaking out Level of Consciousness Inappropriate Patient Orientation Name,Place Patient Behavior/Mood Anxious,Crying/Tearful, Impulsive,Uncooperative, Wandering Ability to Follow Directions Poor Affect Description Angry,Anxious,Apprehensive, Fearful,Tearful,Withdrawn Patient Appearance Disheveled Hallucination Type Auditory,Visual Delusion Description Ideas of Reference,Paranoid Ideation,Thought Insert/Delete
--- NOTE | 2019-04-27 20:54 | PC.NURSE ---
pt stating that she is feeling anxious again. RN and Provider aware
[2019-04-27] MEDS: NICOTINE 14 PATCH 14 MG TOP (21:13)
--- NOTE | 2019-04-27 21:26 | PC.NURSE ---
Patient calm, updated patient of [facility] ETA. Patient cooperative. Offered fluids and warm blanket
--- NOTE | 2019-04-27 22:07 | PC.NURSE ---
DCR at bedside
--- NOTE | 2019-04-27 22:50 | PC.NURSE ---
Snack given, patient up to restroom. Calm and cooperative. Tearful with conversation with staff
--- NOTE | 2019-04-27 22:52 | PC.NURSE ---
Patient requesting IV out painful in hand
--- NOTE | 2019-04-27 22:53 | PC.NURSE ---
Some bruising noted to wrists bilaterally. No open wounds present. ROM intact, good CMS. i think it is from the handcuffs i told the police they were hurting and too tight
--- NOTE | 2019-04-27 23:01 | PC.NURSE ---
some pain and swelling to right wrist patient provided ice, tylenol and motrin. Provider repeated exam on wrist bilaterally secondary to pain and bruising.
[2019-04-27] MEDS: ACETAMINOPHEN 325 MG TABLET 650 MG PO (23:07)
[2019-04-27] MEDS: IBUPROFEN 400 MG TABLET 800 MG PO (23:08)
[2019-04-27] MEDS: LORazepam 0.5 MG TABLET 1 MG PO (23:08)
[2019-04-27 23:21] VITALS: BP 144/99; PULSE 99; RESP 16; TEMP 37.1; O2SAT 98
[2019-04-29 15:57] LABS: Carbamazepine Tegretol Level < 2.0 mg/L (4.0-12.0); Valproic Acid (Depakene) Total < 12.5 mg/L (50.0-100.0)
== END 2019-04-27 23:27 | disposition home or self-care (01) ==
PROVIDERS: Emergency Provider Nurse Practitioner Family
DX: F43.0 Acute stress reaction (principal); R41.82 Altered mental status, unspecified
CPT/HCPCS: 36415; 70450; 76705; 80053; 80156; 80164; 80178; 80185; 80305; 80320; 80329; 81001; 81025; 83605; 84145; 84146; 84443; 84484; 85025; 85610; 85730; 87040; 87086; 93005; 93010; 96374; 99285; 99291; 99292; G0480; J2060

== ENCOUNTER 2019-09-20 10:08 | Inpatient (IN) | payer MEDICAID, SELFPAY ==
[2019-09-20] VITALS (10 sets, daily range): BP systolic 147–189; BP diastolic 90–116; PULSE 61–79; RESP 16–22; TEMP 36.1–37.6; O2SAT 94–99; BMI 22.1
--- NOTE | 2019-09-20 10:12 | DI.US.S_ITS ---
PROCEDURE: US ABDOMEN LIMITED INDICATIONS: EPIGASTRIC PAIN TECHNIQUE: Real-time focused scanning was performed of the abdomen, with image documentation. COMPARISON: [facility], , US ABDOMEN LIMITED, 04/27/2019, 20:13. FINDINGS: The liver is mildly enlarged at 19 cm in craniocaudal dimension. There is diffuse increased echogenicity of the liver when compared to the right kidney, which does result in suboptimal evaluation of the liver for subtle liver lesions. No large liver lesions are identified. There is no intrahepatic or extrahepatic biliary dilatation. The common bile duct measures up to 5 mm in diameter. The gallbladder is normal in size without gallbladder wall thickening, pericholecystic fluid, or cholelithiasis. The patient was slightly tender overlying the region of the eitan hepatis. However, the patient was not significantly tender directly overlying the gallbladder. The pancreas appears to be within normal limits. Imaged portions of the right kidney are grossly unremarkable. However, the right kidney is not adequately evaluated on this study. The abdominal aorta and the inferior vena cava were not adequately imaged. IMPRESSION: 1. No cholelithiasis or evidence of acute cholecystitis. 2. Probable hepatic steatosis. Please correlate clinically to exclude other chronic liver disease. Dictated by: Angel Soto M.D. on 09/20/2019 at 10:02 Approved by: Angel Soto M.D. on 09/20/2019 at 10:17
--- NOTE | 2019-09-20 10:15 | ED.ABDPAIN ---
HPI - Abdominal Pain General Chief Complaint: Abdominal Pain Stated Complaint: Epigastric Pain - Vomiting Time Seen by Provider: 09/20/19 10:09 Source: patient Mode of arrival: Ambulatory Limitations: no limitations History of Present Illness HPI narrative: 33-year-old female smoker with history of alcohol abuse and opioid dependence presents with a chief complaint of about 3 days of severe epigastric pain and radiation to her back. She states that she had been drinking in the days leading up to her pain but has not had a drink in about 3 days. She states she has had withdrawal symptoms in the past and feels a bit fidgety and anxious now but primary complaint is of epigastric pain. She denies any history of pancreatitis or gallbladder disease. MD complaint: abdominal pain Onset (ago): day(s) Pain Consistency: constant Location: epigastric Severity: severe Quality: stabbing Radiation: back Migration to: no migration Relieving factors: nothing Exacerbating factors: eating Associated symptoms: nausea and vomiting Related Data Home Medications Medication Instructions Recorded Confirmed gabapentin 400 mg PO TID 09/20/19 09/20/19 melatonin 5 mg PO BEDTIME 09/20/19 09/20/19 sennosides-docusate sodium [Senna 1 tab PO DAILY 09/20/19 09/20/19 with Docusate Sodium] topiramate 50 mg PO BEDTIME PRN 09/20/19 09/20/19 Allergies Allergy/AdvReac Type Severity Reaction Status Date / Time No Known Drug Allergies Allergy Verified 04/27/19 21:13 Review of Systems Constitutional Constitutional: Denies chills, Denies fatigue, Denies fever(s), Denies frequent falls, Denies lethargy and Denies weakness Eyes Eyes: Denies change in vision, Denies eye discharge, Denies irritation and Denies loss of vision ENT Ears, Nose, Mouth, and Throat: Denies change in voice, Denies dizziness, Denies neck pain, Denies sore throat and Denies throat swelling Cardiovascular Cardiovascular: Denies chest pain, Denies irregular heart rhythm, Denies lightheadedness, Denies palpitations, Denies dyspnea, Denies dyspnea on exertion and Denies orthopnea Respiratory Respiratory: Denies cough, Denies dyspnea, Denies dyspnea on exertion and Denies wheezing Gastrointestinal Gastrointestinal: Reports abdominal pain, Denies change in bowel habits, Denies diarrhea, Reports nausea and Reports vomiting Genitourinary Genitourinary: Denies hematuria, Denies flank pain, Denies urinary incontinence and Denies urinary urgency Musculoskeletal Musculoskeletal: Denies back pain, Denies muscle weakness, Denies neck pain, Denies numbness and Denies tingling Integumentary/Breasts Skin/Breast: Denies pruritus, Denies erythema, Denies rash and Denies wounds Neurologic Neurologic: Denies behavioral changes, Denies confusion, Denies dizziness, Denies frequent falls, Denies loss of vision, Denies numbness, Denies tingling and Denies weakness Psychiatric Psychiatric: Denies anxiety, Denies behavioral changes, Denies confusion, Denies depression, Denies homicidal ideation and Denies suicidal ideation Endocrine Endocrine: Denies fatigue, Denies flushing and Denies palpitations Hematologic/Lymphatic Hematologic/Lymphatic: Denies easy bruising Allergic/Immunologic Allergic/Immunologic: Denies urticaria, Denies throat swelling and Denies wheezing Patient History Medical History Anxiety (Acute) Back pain (Acute) Depression (Acute) Social History Smoking Status: Current every day smoker Substance Use Type: marijuana Exam Narrative Exam Narrative: GENERAL: [33] year old patient appears stated age. Well-nourished, well-developed patient, in moderate distress. Epigastric pain HEAD: Atraumatic. Normocephalic. EYES: Pupils equal round and reactive. Extraocular motions intact. No scleral icterus. No injection or drainage. ENT: Nose without bleeding, purulent drainage. Throat without erythema, tonsillar hypertrophy or exudate. Airway patent. NECK: Trachea midline. Non tender CARDIOVASCULAR: Regular rate and rhythm without murmurs, gallops, or rubs. RESPIRATORY: Clear to auscultation. Breath sounds equal bilaterally. No wheezes, rales, or rhonchi. GASTROINTESTINAL: Abdomen soft, severe epigastric pain, nondistended. EXTREMITIES: No edema or joint tenderness. BACK: Nontender without deformity or crepitance. No flank tenderness. NEURO: AOx3. SKIN: No rash or erythema of visible areas Initial Vital Signs Initial Vital Signs: Vital Signs Temperature 99.0 F 09/20/19 10:21 Pulse Rate 71 09/20/19 10:21 Respiratory Rate 18 02/20/20 10:21 Blood Pressure 189/110 H 09/20/19 10:21 Pulse Oximetry 99 09/20/19 10:21 Course Orders Ordered: ED Orders 09/20/19 10:05 Complete Blood Count AUTO DIFF Stat Comprehensive Metabolic Panel Stat Lipase Stat 09/20/19 10:08 Ethanol (ETOH) Stat 09/20/19 10:12 US abdomen limited Stat Acetaminophen (Tylenol) 650 mg PO Q6HR PRN PRN Reason: Fever/Mild Pain (1-3) Heparin Sodium (Porcine) (Heparin) 5,000 unit SUBCUT BID ALINE Hydromorphone HCl (Dilaudid) 1.5 mg IV Q3H PRN PRN Reason: Pain, Severe (7-10) Sodium Chloride (Normal Saline 0.9%) 1,000 mls @ 100 mls/hr IV CONT ALINE Last Admin: 09/20/19 17:02 Dose: 100 mls/hr Documented by: NILSON Ketorolac Tromethamine (Toradol) 15 mg IV Q6HR PRN PRN Reason: Pain, Moderate (4-6) Stop: 09/25/19 15:41 Naloxone HCl (Narcan) 0.2 mg IV Q2MIN PRN PRN Reason: Opiate Reversal Ondansetron HCl (Zofran) 4 mg IV Q8HR PRN PRN Reason: Nausea And Vomiting Last Admin: 09/20/19 16:40 Dose: 4 mg Documented by: NILSON Discontinued Medications Hydromorphone HCl (Dilaudid) 1 mg IV NOW ONE Stop: 09/20/19 12:21 Last Admin: 09/20/19 12:31 Dose: 1 mg Documented by: CARROLL Hydromorphone HCl (Dilaudid) 1.5 mg IV Q3H PRN PRN Reason: Pain, Severe (7-10) Last Admin: 09/20/19 16:39 Dose: 1.5 mg Documented by: NILSON Sodium Chloride (Normal Saline 0.9%) 1,000 mls @ 1,000 mls/hr IV BOLUS ONE Stop: 09/20/19 11:10 Last Infusion: 09/20/19 14:16 Dose: 0 mls/hr Documented by: Infusion: 09/20/19 12:29 Dose: 0 mls/hr Documented by: Admin: 09/20/19 10:55 Dose: 1,000 mls/hr Documented by: CARROLL Sodium Chloride (Normal Saline 0.9%) 1,000 mls @ 1,000 mls/hr IV BOLUS ONE Stop: 09/20/19 13:30 Last Infusion: 09/20/19 13:46 Dose: 0 mls/hr Documented by: Admin: 09/20/19 12:42 Dose: 1,000 mls/hr Documented by: CARROLL Ondansetron HCl (Zofran) 4 mg IV NOW ONE Stop: 09/20/19 12:40 Last Admin: 09/20/19 12:44 Dose: 4 mg Documented by: CARROLL Vital Signs Vital signs: Vital Signs - 8 hr 09/20/19 10:57 09/20/19 11:16 09/20/19 12:46 Temperature 97.8 F Pulse Rate 79 61 70 Respiratory Rate 22 18 Blood Pressure [Left Arm] 171/105 H 152/96 H Pulse Oximetry 99 99 MDM - Abdominal Pain Lab Data Result diagrams: 09/20/19 10:05 09/20/19 10:05 Labs: Lab Results 09/20/19 09/20/19 09/20/19 Range/Units 10:05 10:05 10:08 WBC 9.5 (4.5-11.0) X10^3/uL RBC 5.10 (4.0-5.2) X10^6/uL Hgb 17.1 H (12.0-16.0) g/dL Hct 49.5 H (36-46) % MCV 97.1 (80-100) fL MCH 33.6 (26-34) PG MCHC 34.5 (30-36) % RDW 13.9 (11.6-14.8) % Plt Count 201 (150-400) X10^3/uL Neut % (Auto) 91.2 H (50-75) % Lymph % (Auto) 4.1 L (25-40) % [place] % (Auto) 4.5 (3-14) % Eos % (Auto) 0.0 L (2-4) % Baso % (Auto) 0.2 (0-2) % Neut # (Auto) 8700 H (3262-9824) /uL Lymph # (Auto) 400 L (0234-2101) /uL [place] # (Auto) 400 (0-900) /uL Eos # (Auto) 0 (0-450) /uL Baso # (Auto) 0 (0-100) /uL Sodium 132 L (137-145) mmol/L Potassium 4.3 (3.4-5.1) mmol/L Chloride 92 L (98-107) mmol/L Carbon Dioxide 19 L (22-32) mmol/L BUN 9 (7-17) mg/dL Creatinine 0.50 L (0.52-1.04) mg/dL Estimated GFR > 60.0 (>60) mL/min BUN/Creatinine Ratio 18.0 (6-22) Glucose 93 (70-100) mg/dL Calcium 9.6 (8.4-10.2) mg/dL Total Bilirubin 5.2 H (0.2-1.3) mg/dL AST 191 H (14-36) IU/L ALT 127 H (<35) IU/L Alkaline Phosphatase 120 (38-126) U/L Total Protein 8.3 H (6.3-8.2) g/dL Albumin 5.1 H (3.5-5.0) g/dL Globulin 3.2 (1.7-4.1) g/dL Albumin/Globulin Ratio 1.6 (1.0-2.8) Lipase 5447 H (23-300) U/L Ethyl Alcohol < 10 ( - 10) mg/dL Imaging Data US - abdomen: Radiologist's Impression: [address] [address] Ultrasound Report Signed Patient: Rodger Mcdonough#: [id number] : 1985Acct:[id number] Age/Sex: 33 / FDate of Service: 09/20/19 Loc: ED Accession Number: [id number] Procedure: US abdomen limited Ordering Provider: Arik Norwood D.O. PROCEDURE: US ABDOMEN LIMITED INDICATIONS: EPIGASTRIC PAIN TECHNIQUE: Real-time focused scanning was performed of the abdomen, with image documentation. COMPARISON: [facility], , US ABDOMEN LIMITED, 04/27/2019, 20:13. FINDINGS: The liver is mildly enlarged at 19 cm in craniocaudal dimension. There is diffuse increased echogenicity of the liver when compared to the right kidney, which does result in suboptimal evaluation of the liver for subtle liver lesions. No large liver lesions are identified. There is no intrahepatic or extrahepatic biliary dilatation. The common bile duct measures up to 5 mm in diameter. The gallbladder is normal in size without gallbladder wall thickening, pericholecystic fluid, or cholelithiasis. The patient was slightly tender overlying the region of the eitan hepatis. However, the patient was not significantly tender directly overlying the gallbladder. The pancreas appears to be within normal limits. Imaged portions of the right kidney are grossly unremarkable. However, the right kidney is not adequately evaluated on this study. The abdominal aorta and the inferior vena cava were not adequately imaged. IMPRESSION: 1. No cholelithiasis or evidence of acute cholecystitis. 2. Probable hepatic steatosis. Please correlate clinically to exclude other chronic liver disease. Dictated by: Angel Soto M.D. on 09/20/2019 at 10:02 Approved by: Angel Soto M.D. on 09/20/2019 at 10:17 Discharge Plan Departure Patient Disposition: Admitted As Inpatient Clinical Impression: Acute pancreatitis Qualifiers: Pancreatitis type: alcohol induced Acute pancreatitis complication: unspecified Qualified Code(s): K85.20 - Alcohol induced acute pancreatitis without necrosis or infection Discharge Date/Time: 09/20/19 14:19 Admit Date/Time: 09/20/19 12:58 Admit Provider: Maurilio Graham
[2019-09-20 10:20] LABS: Add Manual Diff / Slide Review NO; Basophils Absolute Auto 0 /uL (0-100); Basophils Percent Auto 0.2 % (0-2); Eosinophils Absolute Auto 0 /uL (0-450); Hematocrit 49.5 % (36-46); Hemoglobin 17.1 g/dL (12.0-16.0); Lymphocytes Absolute Auto 400 /uL (1100-4500); Lymphocytes Percent Auto 4.1 % (25-40); Mean Corpuscular HGB Conc 34.5 % (30-36); Mean Corpuscular Hemoglobin 33.6 PG (26-34); Mean Corpuscular Volume 97.1 fL (80-100); Monocytes Absolute Auto 400 /uL (0-900); Monocytes Percent Auto 4.5 % (3-14); Neutrophils Absolute Auto 8700 /uL (1500-7000); Neutrophils Percent Auto 91.2 % (50-75); Platelet Count 201 X10^3/uL (150-400); Red Cell Distribution Width 13.9 % (11.6-14.8); White Blood Cell Count 9.5 X10^3/uL (4.5-11.0)
[2019-09-20 10:31] LABS: Alanine Aminotransferase 127 IU/L (<35); Albumin 5.1 g/dL (3.5-5.0); Albumin Globulin Ratio 1.6 (1.0-2.8); Alkaline Phosphatase 120 U/L (38-126); Aspartate Aminotransferase 191 IU/L (14-36); Bilirubin Total 5.2 mg/dL (0.2-1.3); Blood Urea Nitrogen 9 mg/dL (7-17); Calcium 9.6 mg/dL (8.4-10.2); Carbon Dioxide 19 mmol/L (22-32); Chloride 92 mmol/L (98-107); Estimated Glomerular Filt Rate > 60.0 mL/min (>60); Globulin 3.2 g/dL (1.7-4.1); Glucose 93 mg/dL (70-100); Potassium 4.3 mmol/L (3.4-5.1); Sodium 132 mmol/L (137-145); Total Protein 8.3 g/dL (6.3-8.2)
[2019-09-20 10:53] LABS: HEMOLYSIS 18 (0-50)
[2019-09-20] MEDS: SODIUM CHLORIDE 0.9% 1,000 ML 1000 ML IV ×2 (10:55→12:42)
[2019-09-20 10:58] LABS: Lipase 5447 U/L (23-300)
[2019-09-20] MEDS: HYDROMORPHONE 1 MG INJ IV (12:31)
--- NOTE | 2019-09-20 12:39 | PC.NURSE ---
child, 3 year old has been running around room, very active. not being supervised by mom. staff has been in room nonstop. EVIE silva to bedside. pt will be admitted. CPS social media project manager to arrive in 30 mins to take child, pt will be admitted.
[2019-09-20] MEDS: ONDANSETRON 4 MG/2 ML INJ IV ×2 (12:44→16:40)
[2019-09-20 12:56] LABS: Ethanol (ETOH) < 10 mg/dL
--- NOTE | 2019-09-20 13:25 | CM.SWNOTE ---
This MATERIALS COORDINATOR called to respond to the ED; Stephy presents in abd pain and admission is pending for alcoholic pancreatitis, 4 yo son LACHELLE is w/Stephy and she states she has no one to come and get him, this MATERIALS COORDINATOR requests ED staff to hold on admission from the ED to the acute care floor until childcare can be secured and/or CPS notified Arik Norwood contacting [employer] This MATERIALS COORDINATOR met briefly in Stephy's ED rm 05, explained role. LACHELLE is a very active 3 yo, he responds to no and please don't touch that but attention on one thing does not last very long. Stephy looks to be in pain, hunched over in the bed and explains she can not keep up w/him (LACHELLE) Stephy provides this MATERIALS COORDINATOR w/the contact for Nilsa, CPS worker, P# [phone]. Stephy does not elaborate on how CPS is involved but explains she is on her way to come and get DJ Placed call to Nilsa, and her ETA was 1/2hr from [facility] at approx 1300. Nilsa explained she had just put through the placement request and would pick DJ up. Explained Stephy would be admitted for alcoholic pancreatitis and her reported Last drink was 3 days ago ,according to Dr Norwood. No BAL taken at this time BESSIE Zacarias aware and following closely in the ED currently. This MATERIALS COORDINATOR available to assist in coordination as needed. EVIE Grullon
--- NOTE | 2019-09-20 13:51 | PC.NURSE ---
Dinora, CPS renal social worker, picked up child with the [facility].
--- NOTE | 2019-09-20 13:51 | CM.DPC ---
Addendum entered by Letty Slaughter 09/22/19 15:06: C.P.S. contact is Dinora phone# [phone]. Met with patient briefly this AM to explain PLANT BREEDER SCIENTIST role. Patient aware that her son is in C.P.S. custody. Patient provided me with name/number of C.P.S. contact. Patient reports that they have made arrangements for her son to stay in foster care through the weekend. Patient denies any current d/c planning needs. Patient reports that she still is in a lot of pain. Notified patient that CM team would continue to follow. P: Anticipate home when stable. EVIE Morejon Original Note: CPS Es arrived with police radio dispatcher to take son into care. I spoke to patient and explained that CPS wanted her ED medical chart to support why her son LACHELLE was being taken into care from the ED. Pt. was agreeable and signed the consent for release of information without any opposition. seismology technical officer was in room during my conversation with the patient but offered no interaction or comment. Pt. was relaxed and cooperative throughout my interaction with her. Son went willingly with CPS and officer. Patient awaiting transfer to acute care.
--- NOTE | 2019-09-20 15:37 | P.HP_ITS ---
History of Present Illness History of Present Illness Date Patient Seen: 09/20/19 Time Patient Seen: 15:37 Chief complaint: Epigastric Pain - Vomiting Narrative: Stephy Mcdonough is a 33-year-old female with past medical history of chronic back pain, alcohol use, and anxiety who presented to the emergency room with 2 days of epigastric abdominal pain, nausea, and vomiting. Abdominal pain is sharp, radiates into the back, in fairly constant. She states that it does worsen somewhat with meals, and laying on her right side further helps her pain. She has been self medicating with alcohol for chronic low back pain. She endorses 2 shots daily of hard liquor, with occasional wine and beer as well to me but has endorsed more to other providers. She reports drinking more over the past year to control her pain. She sees a primary care provider at the [place], and she was concerned that they would not prescribe pain medications for her, so she has been drinking to control her pain. She states that she does get mildly shaky when she does not drink, but does not report any seizures, intubations, or prior admissions for alcohol withdrawal. She reports prior episode of pancreatitis in [place] many years ago, she states that they never told her what caused that episode. She denies any recent fevers or chills. She denies any hematemesis or hematochezia, she has had no melanotic appearing stools either. She denies any chest pain, shortness of breath, lower extremity edema, numbness, weakness. In the emergency room, patient was mildly hypertensive that improved with pain control, otherwise vital signs are unremarkable. Her labs were notable for hemoglobin of 17.1, sodium of 132, AST 191, ALT 127, and a lipase of 5447. Her alcohol level was negative. Abdominal ultrasound did not show evidence of biliary pathology. [facility] prescription drug monitoring program was accessed and patient had no opiate pain medications dispensed. Patient was a dmitted to Medicine for likely alcoholic pancreatitis. Patient History Medical History Anxiety (Acute) Back pain (Acute) Depression (Acute) Family & Social History Safety & Behavioral: Feels Safe in Current Yes Environment Been Physically Hurt or No Threatened By a Person Tobacco & Substance use: Smoking Status Current every day smoker alcohol intake frequency 3 or more drinks per day Substance Use Type marijuana Meds Home Medications and Allergies Home Medications Medication Instructions Recorded Confirmed Type gabapentin 400 mg PO TID 09/20/19 09/20/19 History melatonin 5 mg PO BEDTIME 09/20/19 09/20/19 History sennosides-docusate sodium [Senna 1 tab PO DAILY 09/20/19 09/20/19 History with Docusate Sodium] topiramate 50 mg PO BEDTIME PRN 09/20/19 09/20/19 History Allergies Allergy/AdvReac Type Severity Reaction Status Date / Time No Known Drug Allergies Allergy Verified 04/27/19 21:13 Review of Systems Review of Systems Narrative: All other systems reviewed with the patient and are negative unless otherwise stated. Exam Vital Signs (past 8 hours): - 09/20/19 10:21 09/20/19 10:57 09/20/19 11:16 Temperature 99.0 F 97.8 F Pulse Rate 79 61 Pulse Rate [Left] 71 Respiratory Rate 18 22 Blood Pressure Blood Pressure [Left Arm] 189/110 H 171/105 H Pulse Oximetry 99 99 09/20/19 12:46 09/20/19 14:00 09/20/19 14:50 Temperature 99.3 F Pulse Rate 70 70 71 Pulse Rate [Left] Respiratory Rate 18 18 16 Blood Pressure 147/105 H Blood Pressure [Left Arm] 152/96 H 162/90 H Pulse Oximetry 99 98 99 Oxygen Delivery Method Room Air Oxygen Flow Rate 0 Narrative Exam Narrative: GENERAL APPEARANCE: Well developed, well nourished, appears uncomfortable, frequently grabbing for emesis bag, but no simone emesis but frequent belching. Initially in right lateral recumbent position. SKIN: Inspection of the skin reveals no rashes, ulcerations or petechiae. HEENT: Dry oral mucosa, no scleral icterus, EOMI. NECK: Supple and symmetric. There was no thyroid enlargement, and no tenderness, or masses were felt. CHEST: Normal AP diameter and normal contour without any kyphoscoliosis. LUNGS: Auscultation of the lungs revealed no wheezes, rhonchi, or rales. CARDIOVASCULAR: There was a regular rate and rhythm without any murmurs, gallops, rubs. Peripheral pulses were 2+ and symmetric. ABDOMEN: Soft, tender in the epigastrium. Nondistended. MUSCULOSKELETAL: There was no tenderness or effusions noted. She has a midline back scar with excessive kyphosis in her thoracic region. She was not tender to light palpation, there is no evidence of erythema. EXTREMITIES: No cyanosis, clubbing or edema. NEUROLOGIC: Alert and oriented x 3. Tearful at times. Gait was normal. Strength is +5/5 in the Upper Extremities and Lower Extremities Bilaterally. Sensation to touch was normal. Objective Labs Result Diagrams: 09/20/19 10:05 09/20/19 10:05 Labs: Laboratory Results - last 24 hr 09/20/19 09/20/19 09/20/19 10:05 10:05 10:08 WBC 9.5 RBC 5.10 Hgb 17.1 H Hct 49.5 H MCV 97.1 MCH 33.6 MCHC 34.5 RDW 13.9 Plt Count 201 Neut % (Auto) 91.2 H Lymph % (Auto) 4.1 L [place] % (Auto) 4.5 Eos % (Auto) 0.0 L Baso % (Auto) 0.2 Neut # (Auto) 8700 H Lymph # (Auto) 400 L [place] # (Auto) 400 Eos # (Auto) 0 Baso # (Auto) 0 Sodium 132 L Potassium 4.3 Chloride 92 L Carbon Dioxide 19 L BUN 9 Creatinine 0.50 L Estimated GFR > 60.0 BUN/Creatinine Ratio 18.0 Glucose 93 Calcium 9.6 Total Bilirubin 5.2 H AST 191 H ALT 127 H Alkaline Phosphatase 120 Total Protein 8.3 H Albumin 5.1 H Globulin 3.2 Albumin/Globulin Ratio 1.6 Lipase 5447 H Ethyl Alcohol < 10 Assessment & Plan Assessment & Plan narrative: Stephy Mcdonough is a 33-year-old female with past medical history of chronic back pain, alcohol use, and anxiety who presented to the emergency room with 2 days of epigastric abdominal pain, nausea, and vomiting. She is admitted to Medicine with likely alcoholic pancreatitis. 1. Pancreatitis, acute, present on admission -likely secondary to alcohol use. Ultrasound was unremarkable showing no biliary pathologies. -patient is requesting clears, will trial clear liquid diet at this time, however given her pain I suspect that she will not be able to tolerate these. If she has further nausea, worsening pain will back off to NPO diet. -patient does appear dehydrated at this time on lab evaluation, will continue normal saline at 100 cc/hour. -lipase of 5447 admission. -obtain fasting lipid panel in the morning to rule out hypertriglyceridemia. -pain control with IV Dilaudid at this time, 1.5 mg q.3 hours as needed. Will add Toradol 15 mg Q 6 as well. -ultrasound in the emergency room showed hepatic steatosis, but no biliary pathology. 2. Elevated transaminases, chronicity unknown, present on admission -suspect secondary to alcoholic hepatitis given history. her bilirubin is 5.2. She also has an AST approximately 1.5 times greater than her ALT. There may be another etiology, however alcohol likely remains the precipitating factor. -continue to follow hepatic panel -bilirubin of 5.2, will obtain to INR to calculate a discriminant function. Unlikely to require steroids based on current findings. -counseled on alcohol cessation . 3. Dehydration, acute, present on admission -likely secondary to decreased p.o. intake and emesis from her pancreatitis. This is evidenced by her hyponatremia, and relatively elevated hemoglobin at 17. -continue IV fluids 4. Hyponatremia, mild, acute, present on admission - -continue IV fluids above, this is likely hypovolemic from the her decreased p.o. intake and emesis. 5. Alcohol use, chronic, present on admission - -patient endorses to me only 2 shots of liquor daily, with additional wine or beer occasionally. Suspect that she drinks quite a bit more. Her last drink was 2 days ago. She does not have any tremors or tongue fasciculations at this time. -will have patient on CIWA protocol temporarily for the 1st 24 hours in case of withdrawal. -will work to treat her underlying chronic back pain as well to reduce her reported self medication with alcohol. Dispo: Patient admitted under inpatient status as her stay is likely to exceed 2 midnights. Code: Full DVT: Heparin subcu
[2019-09-20] MEDS: HYDROMORPHONE 1 MG INJ 1.5 MG IV (16:39)
[2019-09-20] MEDS: SODIUM CHLORIDE 0.9% 1,000 ML 100 ML IV (17:02)
[2019-09-20 17:56] LABS: Prothrombin Time 11.3 SECONDS (10.1-12.7)
--- NOTE | 2019-09-20 18:39 | PC.NURSE ---
Addendum entered by Marlee Oro R.N. 09/20/19 23:23: MAHNAZ Gregg notified Ativan orders as per CIWA are not in effect until pt's CIWA=8. States to treat pain first and see if bp improves. Addendum entered by Marlee Oor R.N. 09/20/19 22:17: MAHNAZ Gregg notified of pt's bp 161/108 with CIWA of 6. Pt does report less abdominal pain lying in bed on right side. Able to rest. Original Note: Pt up in recliner and ambulates to door to ask staff for pain meds. Given iv dilaudid and zofran for c/o abdominal pain 10/10 and nausea. Pt taking sips juice. States pain worsened after sipping juice. Informed pt with pancreatitis this is not unusual to experience increases in discomfort with taking in oral foods and fluids. Pt asks for foods stating hasn't eaten in three days. Again, explained to patient this can cause greater discomfort to abdomen. IV fluids initiated as per MD order to right ac iv site. Warm blanket to abdomen. Prefers to remain up in recliner.
[2019-09-20] MEDS: KETOROLAC 15 MG/ML VIAL IV (18:52)
[2019-09-20] MEDS: HYDROMORPHONE 2 MG INJ 1.5 MG IV ×2 (20:20→23:20)
[2019-09-20] MEDS: HEPARIN 5,000 UNIT/ML VIAL 5000 UNIT SUBCUT (20:20)
--- NOTE | 2019-09-21 00:46 | PC.NURSE ---
Addendum entered by Cece Almeida R.N. 09/21/19 02:39: Has been sleeping since assessment. Now states pain in upper abdomen is back to 8/10 so medicated with Toradol. Denies nausea. Up to bathroom with SBA and voided 450cc dark randal urine. Original Note: Patient seen and evaluated at 2330. Is alert and oriented. Breath sounds CTA with RA sat of 99%. HRR. BP is elevated at 152/116 and AR[employer] AIR OPERATORCristino, is aware and believes related to pain. Denies nausea at this time. BT present and abdomen is soft; does report tenderness through mid section of abdomen and 7/10 upper abdominal pain and medicated with IV Dilaudid. Is able to turn herself. Reports prior to hospitalization did have her right knee gave out but did not fall; now states she just feels weak. Seizure pads applied to bedrails as per CIWA protocol and patient instructed to call for assistance when needing to get out of bed. CIWA score is 4 for mild anxiety and bilateral UE tremors. Fall risk score is moderate and due to potential for withdrawal, reported weakness and seizure precautions bed alarm is activated and patient verbalizes understanding.
[2019-09-21] MEDS: SODIUM CHLORIDE 0.9% 1,000 ML 100 ML IV ×3 (02:29→22:58)
[2019-09-21] MEDS: KETOROLAC 15 MG/ML VIAL IV ×3 (02:30→16:26)
[2019-09-21 06:08] VITALS: BP 160/113; PULSE 94; RESP 16; TEMP 37.2; O2SAT 97
[2019-09-21] MEDS: HYDROMORPHONE 2 MG INJ 1.5 MG IV ×4 (06:45→21:14)
[2019-09-21 06:55] LABS: Alanine Aminotransferase 83 IU/L (<35); Albumin 4.1 g/dL (3.5-5.0); Albumin Globulin Ratio 1.5 (1.0-2.8); Alkaline Phosphatase 85 U/L (38-126); Aspartate Aminotransferase 88 IU/L (14-36); Bilirubin Total 2.9 mg/dL (0.2-1.3); Bilirubin Unconjugated 2.6 mg/dL (0.0-1.1); Blood Urea Nitrogen 6 mg/dL (7-17); Calcium 9.1 mg/dL (8.4-10.2); Carbon Dioxide 26 mmol/L (22-32); Chloride 95 mmol/L (98-107); Cholesterol 187 mg/dL (140-199); Estimated Glomerular Filt Rate > 60.0 mL/min (>60); Globulin 2.8 g/dL (1.7-4.1); Glucose 87 mg/dL (70-100); HDL Cholesterol 103 mg/dL (40-60); HEMOLYSIS 16 (0-50); LDL Cholesterol Calculated 66 mg/dL (<100); Magnesium 1.4 mg/dL (1.6-2.3); Potassium 4.2 mmol/L (3.4-5.1); Sodium 132 mmol/L (137-145); Total Protein 6.9 g/dL (6.3-8.2); Triglycerides 89 mg/dL (35-150)
[2019-09-21 08:43] VITALS: BP 132/90; PULSE 69; RESP 17; TEMP 36.3; O2SAT 97
[2019-09-21 09:30] VITALS: O2SAT 97
[2019-09-21] MEDS: HEPARIN 5,000 UNIT/ML VIAL 5000 UNIT SUBCUT ×2 (09:34→21:14)
[2019-09-21] MEDS: MAGNESIUM SULFATE 2 GM/50 ML PIGGYBACK IV (10:36)
[2019-09-21 11:17] VITALS: BMI 22.1
--- NOTE | 2019-09-21 11:34 | DIET.PN ---
Dietary Progress Note Assessment: 33y F admitted for etoh related pancreatitis. Pt has complex social hx leading to food insecurity and substance use to manage chronic px. Pt has some family support in [place] (including 80y grandfather who she doesn't want to stress out with her problems), her father from etoh abuse, best friend is in [place], pt has 4yo son who is in CPS custody, roomate is truck bench mechanic so not usually around. 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 Pt expresses not being able to handle her son, she does not have help with care, the father has never been involved and lives in [place]. Per pt, pt no longer receives [facility] benefits, has metal rods in back plus herniated disc, was managed c suboxone and lidocaine patches, now uses etoh to medicate which causes pancreatitis. Pt endorses cannabis use. HT: 175.2cm WT: 67.9kg UBW: 81.6kg (1y ago) BMI: 22.1 Labs: AST 83 H, ALT 88 H, Lipase 5447 H MNA: 7 malnourished Viktor: 20 Nutrition Diagnosis: 1. altered nutrition related laboratory values (lipase, LFTs) r/t excessive etoh use, etoh induced pancreatitis aeb pt using etoh to cope c chronic px, AST 88 H, ALT 83 H, lipase 5447 H, pt not [facility] [address] so not getting usual suboxone or lidocaine patches to manage px. 2. unintentional weight loss r/t food insecurity aeb pt reports 17% weight loss in past year, pt unemployed, on disability, single mother to 4yo M, with no drivers license or car, without local social support or food resources (EBT, WIC). Interventions: 1. Recc ONS Ensure clear tid to support nutrition needs while on clear liquid diet. 2. Recc social work consult to address food insecurity and barriers to care leading pt to consume excessive etoh for px control. Diet Order: Clear Liquid EER: 2000kcal, 67g PRO (1g/kg), 2L fluids Monitoring/Evaluations: diet advancement, related labs, ONS tolerance
[2019-09-21] MEDS: OXYCODONE IR 5 MG TABLET PO (14:12)
[2019-09-21 14:42] VITALS: O2SAT 97
--- NOTE | 2019-09-21 15:01 | PM.PN.1 ---
Subjective Subjective Date Patient Seen: 09/21/19 Time Patient Seen: 13:10 Interval history: Stephy Mcdonough is a 33-year-old female with past medical history of chronic back pain, alcohol use, and anxiety who presented to the emergency room initially with 2 days of epigastric abdominal pain, nausea, and vomiting. She was admitted for alcoholic pancreatitis. This morning she was seen lying in a lateral recumbent position. She looks slightly more comfortable than yesterday. She still complains of moderate epigastric pain, slightly down from severe yesterday. She is still requiring high doses of IV pain medications, but was asking her nurse for a salad and she does feel hungry. She denies any fevers or chills, and states overall she does feel slightly better. Exam Vital Signs (past 8 hours): - 09/21/19 08:43 09/21/19 09:30 09/21/19 14:42 Temperature 97.3 F L Pulse Rate 69 Respiratory Rate 17 Blood Pressure 132/90 Pulse Oximetry 97 97 97 Oxygen Delivery Method Room Air Oxygen Flow Rate 0 Narrative Exam Narrative: GENERAL APPEARANCE: Well developed, well nourished, appears more comfortable today. Initially in right lateral recumbent position. SKIN: Inspection of the skin reveals no rashes, ulcerations or petechiae. HEENT: Oral mucosa moist, no scleral icterus, EOMI. NECK: Supple and symmetric. There was no thyroid enlargement, and no tenderness, or masses were felt. CHEST: Normal AP diameter and normal contour without any kyphoscoliosis. LUNGS: Auscultation of the lungs revealed no wheezes, rhonchi, or rales. CARDIOVASCULAR: There was a regular rate and rhythm without any murmurs, gallops, rubs. Peripheral pulses were 2+ and symmetric. ABDOMEN: Soft, tender in the epigastrium. Nondistended. MUSCULOSKELETAL: There was no tenderness or effusions noted. She has a midline back scar with excessive kyphosis in her thoracic region. She was not tender to light palpation, there is no evidence of erythema. EXTREMITIES: No cyanosis, clubbing or edema. NEUROLOGIC: Alert and oriented x 3. Tearful at times. Gait was normal. Strength is +5/5 in the Upper Extremities and Lower Extremities Bilaterally. Sensation to touch was normal. Objective Labs Result Diagrams: 09/20/19 10:05 02/21/20 06:20 Labs: Laboratory Results - last 24 hr 09/20/19 09/21/19 17:37 06:20 PT 11.3 INR 1.0 Sodium 132 L Potassium 4.2 Chloride 95 L Carbon Dioxide 26 BUN 6 L Creatinine 0.50 L Estimated GFR > 60.0 BUN/Creatinine Ratio 12.0 Glucose 87 Calcium 9.1 Magnesium 1.4 L Total Bilirubin 2.9 H Conjugated Bilirubin 0.0 Unconjugated Bilirubin 2.6 H AST 88 H ALT 83 H Alkaline Phosphatase 85 Total Protein 6.9 Albumin 4.1 Globulin 2.8 Albumin/Globulin Ratio 1.5 Triglycerides 89 Cholesterol 187 LDL Cholesterol, Calc 66 HDL Cholesterol 103 H Assessment & Plan Assessment & Plan narrative: Stephy Mcdonough is a 33-year-old female with past medical history of chronic back pain, alcohol use, and anxiety who presented to the emergency room with 2 days of epigastric abdominal pain, nausea, and vomiting. She is admitted to Medicine with likely alcoholic pancreatitis. 1. Pancreatitis, acute, present on admission -likely secondary to alcohol use. Ultrasound was unremarkable showing no biliary pathologies. -patient was started on clears and is to some extent tolerating clear liquids. She is hungry and request to try a low-fat meal. We can certainly try and advance her diet, with the understanding that if she develops recurrent pain that we may need to go back to clears. -lipase of 5447 admission. -lipid panel was unremarkable, and triglycerides were 89. -pain control: Will add oral oxycodone to started 5 mg as needed, continue previous IV Dilaudid , 1.5 mg q.3 hours as needed And Toradol 15 mg Q 6 prn as well. -ultrasound in the emergency room showed hepatic steatosis, but no biliary pathology. 2. Elevated transaminases, chronicity unknown, present on admission -suspect secondary to alcoholic hepatitis given history. her bilirubin was 5.2 on admission. She also had an AST approximately 1.5 times greater than her ALT. There may be another etiology, however alcohol likely remains the precipitating factor. Her LFTs were improved today, also further consistent with alcoholic hepatitis. Her bilirubin has also come down to 2.9. -continue to follow hepatic panel -bilirubin of 5.2, INR 1.0 on admission. Patient does not require steroids for alcoholic hepatitis. -counseled on alcohol cessation. -will send hep b and C lab evaluation. 3. Dehydration, acute, present on admission -likely secondary to decreased p.o. intake and emesis from her pancreatitis. This is evidenced by her hyponatremia, and relatively elevated hemoglobin at 17. -continue IV fluids 4. Hyponatremia, mild, acute, present on admission - -continue IV fluids above, this is likely hypovolemic from the her decreased p.o. intake and emesis. 5. Alcohol use, chronic, present on admission - -patient endorses to me only 2 shots of liquor daily, with additional wine or beer occasionally. Suspect that she drinks quite a bit more. Her last drink was 2 days ago. She does not have any tremors or tongue fasciculations at this time. -will have patient on CIWA protocol temporarily for the 1st 24 hours in case of withdrawal. -will work to treat her underlying chronic back pain as well to reduce her reported self medication with alcohol. She will need outpatient follow-up with a primary care provider that is willing to work with her on pain management, or refer her to industrial spray painter. Dispo: Remains inpatient, anticipate discharge in the next 2-3 days depending on her symptoms Code: Full DVT: Heparin subcu Quality VTE Deep Vein Thrombosis/Pulmonary Embolism Present on Admission: No
[2019-09-21 16:19] VITALS: BP 135/97; PULSE 101; RESP 18; TEMP 37.4; O2SAT 98
[2019-09-21] MEDS: ACETAMINOPHEN 325 MG TABLET 650 MG PO (16:44)
--- NOTE | 2019-09-21 19:08 | PC.NURSE ---
Addendum entered by Marlee Oro R.N. 09/21/19 23:18: Able to take bites of requested evening meal of mashed potatoes. States pain to abdomen does not worsen. Denies nausea. Seizure pads in place. Reports headache pain resolved. Dilaudid to manage pt as pt states this provides the most rapid relief. Urine dark randal in color. Up independently to bathroom to void. Original Note: Pt requests pain medications @ beginning of shift. States is feeling better than yesterday, but admits to abdominal and back pain as well as intermittent headache pain. States abdomen and back are 8/10 with intermittent THOMAS 5/10. Denies nausea. No observable tremors to outstretched hands. Steady on feet. Skin is moist to touch. Orders mashed potatoes and meatloaf with 7-up from dietary department. Medicated as per emar.
[2019-09-21 21:55] VITALS: BP 122/95; PULSE 93; RESP 16; TEMP 36.7; O2SAT 97
[2019-09-22] VITALS (8 sets, daily range): BP systolic 123–150; BP diastolic 85–104; PULSE 64–89; RESP 16–20; TEMP 36.6–37.4; O2SAT 95–100
[2019-09-22] MEDS: HYDROMORPHONE 2 MG INJ 1.5 MG IV ×7 (00:55→21:37)
[2019-09-22] MEDS: KETOROLAC 15 MG/ML VIAL IV (00:55)
[2019-09-22] MEDS: SODIUM CHLORIDE 0.9% 1,000 ML 100 ML IV ×2 (05:26→21:41)
[2019-09-22 07:25] LABS: Alanine Aminotransferase 57 IU/L (<35); Albumin 3.4 g/dL (3.5-5.0); Albumin Globulin Ratio 1.3 (1.0-2.8); Alkaline Phosphatase 70 U/L (38-126); Aspartate Aminotransferase 64 IU/L (14-36); Bilirubin Total 2.4 mg/dL (0.2-1.3); Bilirubin Unconjugated 2.3 mg/dL (0.0-1.1); Blood Urea Nitrogen 6 mg/dL (7-17); Calcium 8.6 mg/dL (8.4-10.2); Carbon Dioxide 29 mmol/L (22-32); Chloride 97 mmol/L (98-107); Estimated Glomerular Filt Rate > 60.0 mL/min (>60); Globulin 2.7 g/dL (1.7-4.1); Glucose 98 mg/dL (70-100); HEMOLYSIS < 15 (0-50); Magnesium 1.7 mg/dL (1.6-2.3); Potassium 3.6 mmol/L (3.4-5.1); Sodium 132 mmol/L (137-145); Total Protein 6.1 g/dL (6.3-8.2)
[2019-09-22 08:31] LABS: Hepatitis B Surface Antigen NEGATIVE s/c (NEGATIVE)
[2019-09-22 08:45] LABS: Hep C Virus Ab w/Reflex Quant NEGATIVE s/c (NEGATIVE)
[2019-09-22] MEDS: HEPARIN 5,000 UNIT/ML VIAL 5000 UNIT SUBCUT ×2 (08:55→21:37)
--- NOTE | 2019-09-22 14:26 | PM.PN.1 ---
Subjective Subjective Date Patient Seen: 09/22/19 Time Patient Seen: 09:30 Interval history: Stephy Mcdonough is a 33-year-old female with past medical history of chronic back pain, alcohol use, and anxiety who presented to the emergency room initially with 2 days of epigastric abdominal pain, nausea, and vomiting. She was admitted for alcoholic pancreatitis. This morning she appears some what improved and she looks slightly more comfortable than yesterday. She still complains of epigastric pain but this does not seemed to be worsened by low fat diet intake but she has not eaten more than a few bites. She is requiring less pain medication. She denies any chest pain, shortness of breath. She endorses mild nausea but no vomiting. She has had no fevers, chills, or rashes develop. Exam Vital Signs (past 8 hours): - 09/22/19 07:45 Temperature 98.6 F Pulse Rate 64 Respiratory Rate 16 Blood Pressure 123/85 Pulse Oximetry 97 Oxygen Delivery Method Room Air Oxygen Flow Rate 0 Narrative Exam Narrative: GENERAL APPEARANCE: Well developed, well nourished, appears more comfortable today. Initially in right lateral recumbent position. SKIN: Inspection of the skin reveals no rashes, ulcerations or petechiae. HEENT: Oral mucosa moist, no scleral icterus, EOMI. NECK: Supple and symmetric. There was no thyroid enlargement, and no tenderness, or masses were felt. CHEST: Normal AP diameter and normal contour without any kyphoscoliosis. LUNGS: Auscultation of the lungs revealed no wheezes, rhonchi, or rales. CARDIOVASCULAR: There was a regular rate and rhythm without any murmurs, gallops, rubs. Peripheral pulses were 2+ and symmetric. ABDOMEN: Soft, minimally tender in the epigastrium, much improved.. Nondistended. MUSCULOSKELETAL: There was no tenderness or effusions noted. She has a midline back scar with excessive kyphosis in her thoracic region. She was not tender to light palpation, there is no evidence of erythema. EXTREMITIES: No cyanosis, clubbing or edema. NEUROLOGIC: Alert and oriented x 3. Tearful at times. Gait was normal. Strength is +5/5 in the Upper Extremities and Lower Extremities Bilaterally. Sensation to touch was normal. Objective Labs Result Diagrams: 09/20/19 10:05 09/22/19 07:00 Labs: Laboratory Results - last 24 hr 09/22/19 09/22/19 07:00 07:00 Sodium 132 L Potassium 3.6 Chloride 97 L Carbon Dioxide 29 BUN 6 L Creatinine 0.40 L Estimated GFR > 60.0 BUN/Creatinine Ratio 15.0 Glucose 98 Calcium 8.6 Magnesium 1.7 Total Bilirubin 2.4 H Conjugated Bilirubin 0.0 Unconjugated Bilirubin 2.3 H AST 64 H ALT 57 H Alkaline Phosphatase 70 Total Protein 6.1 L Albumin 3.4 L Globulin 2.7 Albumin/Globulin Ratio 1.3 Hep Bs Antigen Negative Hepatitis C Antibody Negative Assessment & Plan Assessment & Plan narrative: Stephy Mcdonough is a 33-year-old female with past medical history of chronic back pain, alcohol use, and anxiety who presented to the emergency room with 2 days of epigastric abdominal pain, nausea, and vomiting. She is admitted to Medicine with likely alcoholic pancreatitis. 1. Pancreatitis, acute, present on admission -likely secondary to alcohol use. Ultrasound was unremarkable showing no biliary pathologies, triglycerides are unremarkable. -patient was started a low fat meal. She has had a few bites of food only today. Will continue her on a low fat meal and continue to follow her pain. -lipase of 5447 admission. -lipid panel was unremarkable, and triglycerides were 89. -ultrasound in the emergency room showed hepatic steatosis, but no biliary pathology. -pain control: Continue oral oxycodone to started 5 mg as needed, continue previous IV Dilaudid , 1.5 mg q.3 hours as needed And Toradol 15 mg Q 6 prn as well. Patient agrees to try and limit the use of narcotic pain medications at this time. 2. Elevated transaminases, chronicity unknown, present on admission -suspect secondary to alcoholic hepatitis given history. her bilirubin was 5.2 on admission. She also had an AST approximately 1.5 times greater than her ALT. There may be another etiology, however alcohol likely remains the precipitating factor. Her LFTs were improved today, also further consistent with alcoholic hepatitis. Her bilirubin has also come down to 2.3. -continue to follow hepatic panel -bilirubin of 5.2, INR 1.0 on admission. Patient did not require steroids for alcoholic hepatitis. -counseled on alcohol cessation. -will send hep b and C lab evaluation. pending. 3. Dehydration, acute, present on admission -likely secondary to decreased p.o. intake and emesis from her pancreatitis. This is evidenced by her hyponatremia, and relatively elevated hemoglobin at 17. -continue IV fluids 4. Hyponatremia, mild, acute, present on admission - -continue IV fluids above, this is likely hypovolemic from the her decreased p.o. intake and emesis. 5. Alcohol use, chronic, present on admission - -patient endorses to me only 2 shots of liquor daily, with additional wine or beer occasionally. Suspect that she drinks quite a bit more. Her last drink was 2 days priro to admission. She does not have any tremors or tongue fasciculations at this time. -patient was on on CIWA protocol temporarily. Will discontinue today. -will work to treat her underlying chronic back pain as well to reduce her reported self medication with alcohol. 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 Dispo: Remains inpatient, anticipate discharge in the next 1-2 days depending on her symptoms Code: Full DVT: Heparin subcu Quality VTE Deep Vein Thrombosis/Pulmonary Embolism Present on Admission: No
--- NOTE | 2019-09-22 15:41 | PC.NURSE ---
Nurse Note Patient alert and oriented this shift. Continues to have abd. pain, tolerable with ordered IV medication. Patient unable to tolerate much PO intake as of this time. Care is ongoing.
--- NOTE | 2019-09-22 16:11 | PC.NURSE ---
Addendum entered by Noemy Bush R.N. 09/22/19 21:54: Pt IV site infiltrated, new line established in the LFA w/o incidence. Med @ 1850 & 2140 w/ Dilaudid for abdominal discomfort w/fair relief. Condition remains essentially unchanged from start of shift. Call light w/in reach, bed alarm on for pt safety. Continue w/plan of care. Original Note: Pt watching TV at this time. Lungs clear, SpO2 98% RA States that Upper right quad abdomen tender, and painf at 6/10. Had Dilaudid at 1530. IVF of NS @ 100cc/hr infusing via pump into the RAC w/o incidence. Call light w/in reach, pt calls appropriately for needs.
[2019-09-23] VITALS: O2SAT 99
[2019-09-23 00:30] VITALS: BP 130/93; PULSE 66; RESP 20; TEMP 37.3; O2SAT 99
[2019-09-23] MEDS: HYDROMORPHONE 2 MG INJ 1.5 MG IV ×2 (00:51→06:46)
--- NOTE | 2019-09-23 02:54 | PC.NURSE ---
NOC shift. pt AO and receptive to care. L FA infusing NS at 100/hr. IND in room and denying alterations. 6-02/07 pain in abdomen and back, administered 1.5mg IV Dilaudid and improving. Expressing concerns with new hernia diagnosis and how to manage. pt utilizing her own scarf to apply pressure, which she expressed helps with the pain. CIWA pads are applied to bed but no CIWA characteristics witnessed. patient c/o gastric reflux but no medication ordered, pt managing with ice water. pt last BM 09/19 and hypobowel tones auscultated. pt reports an improved appetite since the pancreatitis started but still apprehensive to eat with the constant pain.
[2019-09-23 04:45] VITALS: BP 142/109; PULSE 58; RESP 19; TEMP 37; O2SAT 97
[2019-09-23 06:29] LABS: Alanine Aminotransferase 55 IU/L (<35); Albumin 3.3 g/dL (3.5-5.0); Albumin Globulin Ratio 1.2 (1.0-2.8); Alkaline Phosphatase 66 U/L (38-126); Aspartate Aminotransferase 79 IU/L (14-36); BUN Creatinine Ratio 13.3 (6-22); Bilirubin Total 1.9 mg/dL (0.2-1.3); Bilirubin Unconjugated 1.8 mg/dL (0.0-1.1); Blood Urea Nitrogen 4 mg/dL (7-17); Calcium 8.6 mg/dL (8.4-10.2); Carbon Dioxide 28 mmol/L (22-32); Chloride 99 mmol/L (98-107); Estimated Glomerular Filt Rate > 60.0 mL/min (>60); Globulin 2.8 g/dL (1.7-4.1); Glucose 102 mg/dL (70-100); HEMOLYSIS < 15 (0-50); Magnesium 1.6 mg/dL (1.6-2.3); Potassium 3.1 mmol/L (3.4-5.1); Sodium 135 mmol/L (137-145); Total Protein 6.1 g/dL (6.3-8.2)
[2019-09-23 07:55] LABS: Lipase 1195 U/L (23-300)
[2019-09-23] MEDS: POTASSIUM CHLORIDE 20 MEQ TAB 40 MEQ PO (08:13)
[2019-09-23] MEDS: HEPARIN 5,000 UNIT/ML VIAL 5000 UNIT SUBCUT (08:13)
[2019-09-23] MEDS: OXYCODONE IR 5 MG TABLET PO ×2 (08:25→12:37)
[2019-09-23] MEDS: SODIUM CHLORIDE 0.9% 1,000 ML 100 ML IV (08:25)
[2019-09-23 08:43] VITALS: BP 161/119; PULSE 82; RESP 16; TEMP 36.9; O2SAT 98
--- NOTE | 2019-09-23 08:59 | PC.NURSE ---
Patient A&O this shift. Continues to have pain to the abdomen. After discussion patient agreeable to try oral pain medication to attempt transition from IV. Care is ongoing.
--- NOTE | 2019-09-23 11:39 | CM.DANOTE ---
DCP/Note: Received verbal referral from provider/Dr. Mcpherosn indicating that patient most likely will be medically cleared to d/c home today. 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 Patient confirms that her son in [employer] custody contact: Dinora # [phone]. Patient plans to f/u with [employer] either later today or tomorrow. Patient I in ADL's and encouraged strongly to not drink alcohol. Patient agrees but does complain of pain. She reports that is why she started to drink in the first place. Patient has been unable to obtain appropriate pain management therefore, starting drinking instead. Encouraged patient to obtain PCP and ask about pain management program. Patient appeared receptive at time resources provided. Patient reports h/o narcotic abuse in the twenties and alcohol in her thirties. Patient given resources for mental health, primary care, and substance abuse. P: Home today. EVIE Morejon Discharge Planning/Care Management Advanced directive, confirm from FAMILY Start: 09/20/19 19:02 Freq: Q24H Status: Active Protocol: Document 09/22/19 19:02 KMD (Rec: 09/22/19 19:37 KMD [id number]) Advance Directive, confirm on record Time 19:37 Person contacted Pt Copy received No CM Discharge Assessment Start: 09/23/19 11:34 Freq: Status: Active Protocol: Document 09/23/19 11:34 KJS (Rec: 09/23/19 11:39 KJS [id number]) Discharge Planning Assessment Assigned Speeder Hand EVIE Morejon Advance Directives? No History Provided By Patient,Medical Record Prior Living Arrangements Apartment/Condo Household Members other Type of transporation used prior to Relies on Others admit Independent with ADL's Yes Is patient alert and oriented? Yes Caregiver for Another Yes: has minor children, none in her custody Barriers to Discharge No Transportation Arrangement Patient reports that a friend can pick her up. Referrals Initiated Other Additional Comment Patient provided with community resources for substance/alcohol abuse and PCP. Whiteboard Updated in Patient Room with Yes name and ext. # of Speeder Hand Review Status In Process Next Review Type Continued Stay Review
[2019-09-23 12:06] VITALS: BP 149/105; PULSE 85; RESP 16; TEMP 37; O2SAT 99
--- NOTE | 2019-09-23 13:51 | P.DS_ITS ---
History of Present Illness History of Present Illness Date Patient Seen: 09/20/19 Chief complaint: Epigastric Pain - Vomiting Narrative: Written by Dr. Graham: Stephy Mcdonough is a 33-year-old female with past medical history of chronic back pain, alcohol use, and anxiety who presented to the emergency room with 2 days of epigastric abdominal pain, nausea, and vomiting. Abdominal pain is sharp, radiates into the back, in fairly constant. She states that it does worsen so mewhat with meals, and laying on her right side further helps her pain. She has been self medicating with alcohol for chronic low back pain. She endorses 2 shots daily of hard liquor, with occasional wine and beer as well to me but has endorsed more to other providers. She reports drinking more over the past year to control her pain. She sees a primary care provider at the [facility], and she was concerned that they would not prescribe pain medications for her, so she has been drinking to control her pain. She states that she does get mildly shaky when she does not drink, but does not report any seizures, intubations, or prior admissions for alcohol withdrawal. She reports prior episode of pancreatitis in [place] many years ago, she states that they never told her what caused that episode. She denies any recent fevers or chills. She denies any hematemesis or hematochezia, she has had no melanotic appearing stools either. She denies any chest pain, shortness of breath, lower extremity edema, numbness, weakness. In the emergency room, patient was mildly hypertensive that improved with pain control, otherwise vital signs are unremarkable. Her labs were notable for hemoglobin of 17.1, sodium of 132, AST 191, ALT 127, and a lipase of 5447. Her alcohol level was negative. Abdominal ultrasound did not show evidence of biliary pathology. [facility] prescription drug monitoring program was accessed and patient had no opiate pain medications dispensed. Patient was admitted to Medicine for likely alcoholic pancreatitis. Discharge Providers Provider Date of admission: 09/20/19 12:58 Discharge Date: 09/23/19 Consults: 09/20/19 19:02 Consult to Dietitian, Adult Routine Comment: Reason For Exam: admits to poor appetite 09/21/19 11:27 [place] [facility] Routine Comment: Discharge provider: Livia Mcpherson DO Summary Hospital Course Discharge Diagnosis: 1. Acute alcoholic pancreatitis, present on admission. Resolving. 2. Alcoholic hepatitis, chronicity unknown, present on admission. Resolving. 3. Acute dehydration, present on admission. Resolved. 4. Acute hyponatremia, present on admission. Resolved. 5. Alcohol dependence, chronic, present on admission. Stable. Hospital Course: Stephy Mcdonough is a 33-year-old female with past medical history of chronic back pain, alcohol use, and anxiety who presented to the emergency room with 2 days of epigastric abdominal pain, nausea, and vomiting. 1. Acute alcoholic pancreatitis, present on admission. Resolving. -Patient endorses recent alcohol use to self medicate for back pain. -Ultrasound was unremarkable and did not demonstrate any hepatobiliary pathologies. -Initial lipase 5447 on admission. Trended down now 1195. -Lipid panel was unremarkable with triglycerides 89. -Continued IV fluids until adequately hydrated then discontinued. -Patient was initially NPO. Diet was slowly advanced and tolerating low fat, low residue diet. -Abdominal ultrasound demonstrated hepatic steatosis, but no hepatobiliary pathology. -Continued pain control with dilaudid 1.5 mg initially every 3 hours as needed then titrated down on dose and frequency as diet was advanced and PO narcotic started. Continued oxycodone 5 mg every 6 hours as needed for severe abdominal pain and Toradol 15 mg every 6 hours as needed for mild to moderate pain. 2. Alcoholic hepatitis, chronicity unknown, present on admission. Resolving. -Secondary alcohol abuse. Initial LFTS:Bilirubin elevated at 5.2 and AST:ALT r atio 2:1. LFT's downward trending as anticipated with alcohol cessation. -Acute hepatic panel negative thus far with HBsAb a send out and pending. -Counseled on alcohol cessation and patient endorses she plans to remain abstinent. 3. Acute dehydration, present on admission. Resolved. -Secondary to decreased p.o. intake and emesis from her pancreatitis. This is evidenced by her hyponatremia, and relatively elevated hemoglobin at 17. -Continued IV fluids as above. 4. Acute hyponatremia, present on admission. Resolved. -Secondary to hypovolemia from the her decreased p.o. intake and emesis. -Continue IV fluids as above. 5. Alcohol dependence, chronic, present on admission. Stable. -Patient endorsed 2 shots of liquor daily with occasional wine or beer as well to admitting provider. Suspect that she drinks quite a bit more. Her last drink was 2 days prior to admission. She denies history of alcohol withdrawal, DTs or alchol withdrawal seizure. -Continued CIWA protocol initially but no signs or symptoms of alcohol withdrawal and discontinued. -Continued management of pain as above. Patient reports she plans to abstain from alcohol at time of discharge. She will need outpatient follow-up with a primary care provider that is willing to work with her on pain management, or refer her to foxing painter. Exam Vital Signs (past 8 hours): - 09/23/19 08:43 Temperature 98.5 F Pulse Rate 82 Respiratory Rate 16 Blood Pressure 161/119 H Pulse Oximetry 98 Oxygen Delivery Method Room Air Oxygen Flow Rate 0 Narrative Exam Narrative: General: Young female lying in bed and in no acute distress, well-developed, well-nourished, anxious but appropriately interactive. HEENT: Normocephalic, atraumatic. External ears without defect. Pupils equal, round, and reactive to light and accommodation. Anicteric sclerae, moist conjunctivae, and no lid lag. Oropharynx free of erythema and cobble stoning with moist mucosa. Neck: Supple with full range of motion. No lymphadenopathy or thyromegaly. Cardiovascular: Regular rate and rhythm without murmurs, rubs, or gallops appreciated. Pulmonary: Clear to auscultation bilaterally without crackles, wheezes, or rhonchi. Normal respiratory effort with no use of accessory muscles. Abdomen: Soft, bowel sounds present, mild tenderness to palpation in epigastrum, nondistended. No hepatosplenomegaly or masses appreciated. Extremities: No clubbing, cyanosis, or edema. Skin: Normal temperature, turgor, and texture; no rash, ulcers, or subcutaneous nodules appreciated. Neurological: Cranial nerves grossly intact. Psychiatric: Anxious mood and affect. Alert and oriented to person, place, and time. Objective Labs Result Diagrams: 09/20/19 10:05 09/23/19 06:06 Labs: Laboratory Results - last 24 hr 09/23/19 09/23/19 06:06 06:06 Sodium 135 L Potassium 3.1 L Chloride 99 Carbon Dioxide 28 BUN 4 L Creatinine 0.30 L Estimated GFR > 60.0 BUN/Creatinine Ratio 13.3 Glucose 102 H Calcium 8.6 Magnesium 1.6 Total Bilirubin 1.9 H Conjugated Bilirubin 0.0 Unconjugated Bilirubin 1.8 H AST 79 H ALT 55 H Alkaline Phosphatase 66 Total Protein 6.1 L Albumin 3.3 L Globulin 2.8 Albumin/Globulin Ratio 1.2 Lipase 1195 H D Discharge Plan Discharge Plan Patient Disposition: Home Discharge comment: You are being discharged home. You had alcohol-induced pancreatitis. Please abstain from alcohol indefinitely. Your abdominal pain should slowly resolve in the next several days. Please slowly advance your diet as tolerated. Please consume a soft bland diet high in protein and avoid a high fat and high fiber diet. You were prescribed oxycodone 5 every 6-8 hours as needed for severe abdominal pain. Please establish care with a primary care physician in the community. You should implement relaxation techniques to help control your chronic back pain including meditation, stretching, massage therapy, acupuncture, etc. Recommend counseling with cognitive behavioral th erapy to help your stress level and pain. Discharge orders & Medications Prescriptions: New oxycodone 5 mg capsule 5 mg PO Q8H PRN (Reason: pain) Qty: 15 RF: 0 Continued gabapentin 400 mg Capsule 400 mg PO TID RF: 0 sennosides-docusate sodium [Senna with Docusate Sodium] 8.6-50 mg Tablet 1 tab PO DAILY RF: 0 topiramate 50 mg Tablet 50 mg PO BEDTIME PRN (Reason: insomnia) RF: 0 melatonin 5 mg Capsule 5 mg PO BEDTIME RF: 0 Diet/Activity/Treatments Diet: Diet as Tolerated and Low-fat Diet comment: Soft bland diet, high in protein, low fat and low fiber Activity: Activity as tolerated Visit Report/Discharge Packet Instructions: Fat-Restricted Diet, Low-Fiber/Low-Residue Diet, Soft Diet, DI for Pancreatitis Discharges patient from system. Discharge Date/Time: 09/23/19 14:45 Quality VTE Deep Vein Thrombosis/Pulmonary Embolism Present on Admission: No
--- NOTE | 2019-09-23 15:20 | PC.NURSE ---
Discharge Note Orders for discharge were received. The patient was made aware of the plan for discharge and were agreeable to go. Information, including handouts, were given to the patient including information on diagnosis, signs and symptoms to be aware of, scripts with teaching on new medications and follow-up directions. The patient stated understanding of this information and the IV was removed intact. All belongings gathered and accompanied patient. The patient then ambulated to the main entrance to a private vehicle. At the time of discharge the patient was alert and oriented, with no complaints of chest pain, shortness of breath, nausea, vomiting or other difficulty. Post discharge the patients chart was unable to be located after patient discharge signature paperwork was completed and placed in it. Patient called, patient states she does not have the chart. The search for the chart continues.
[2019-09-25 13:45] LABS: Hepatitis B Core Antibody Nonreactive (Nonreactive); Hepatitis B Surf Ab Qualitativ Reactive (Nonreactive)
== END 2019-09-23 14:45 | disposition home or self-care (01) | DRG 439 ==
LOC: ED 11:43 → AC 12:59
PROVIDERS: Internal Medicine; Admitting Provider Internal Medicine; Emergency Provider Emergency Medicine; Referring Provider Emergency Medicine; Visit Provider Internal Medicine
DX: K85.20 Alcohol induced acute pancreatitis without necrosis or infection (principal); E87.1 Hypo-osmolality and hyponatremia; E86.0 Dehydration; F10.10 Alcohol abuse, uncomplicated; F41.9 Anxiety disorder, unspecified; G89.29 Other chronic pain; K70.10 Alcoholic hepatitis without ascites; F17.210 Nicotine dependence, cigarettes, uncomplicated
CPT/HCPCS: 36415; 76705; 80048; 80053; 80061; 80076; 80320; 83690; 83735; 85025; 85610; 86704; 86706; 86803; 87340; 99284; J1170; J1644; J1885; J2405

== ENCOUNTER 2019-10-14 01:33 | Emergency (ER) | payer MEDICAID, SELFPAY ==
[2019-09-20 18:54] VITALS: BMI 22.1
[2019-10-14 01:36] VITALS: BP 160/105; PULSE 93; RESP 16; TEMP 36.8; O2SAT 98; BMI 21.4
--- NOTE | 2019-10-14 01:50 | ED_ITS ---
HPI - General Adult General Chief complaint: Abdominal Pain Stated complaint: back pain, stomach pain Time Seen by Provider: 10/14/19 01:37 Source: patient Mode of arrival: Ambulatory Limitations: no limitations History of Present Illness HPI narrative: 33-year-old female here for evaluation of epigastric abdominal pain and nausea. Has not had any vomiting. Has had pancreatitis in the past and she states this feels somewhat like her prior history of pancreatitis but not as bad. No fevers. Points to her epigastrium when asked where the pain is. Sharp pain. No urinary symptoms. No bowel changes. States she did drink alcohol within the past 24 hours. It appears that her prior history of pancreatitis was related alcohol use. Has not tried anything for symptoms prior to arrival. Related Data Home Medications Medication Instructions Recorded Confirmed gabapentin 400 mg PO TID 09/20/19 09/20/19 melatonin 5 mg PO BEDTIME 09/20/19 09/20/19 sennosides-docusate sodium [Senna 1 tab PO DAILY 09/20/19 09/20/19 with Docusate Sodium] topiramate 50 mg PO BEDTIME PRN 09/20/19 09/20/19 Previous Rx's Medication Instructions Recorded oxycodone 5 mg PO Q8H PRN #15 cap 09/23/19 Allergies Allergy/AdvReac Type Severity Reaction Status Date / Time No Known Drug Allergies Allergy Verified 10/14/19 01:52 Review of Systems Constitutional Constitutional: Denies fever(s) Cardiovascular Cardiovascular: Denies chest pain and Denies dyspnea Respiratory Respiratory: Denies dyspnea Gastrointestinal Gastrointestinal: Reports abdominal pain, Denies change in stool character and Reports nausea Genitourinary Genitourinary: Denies dysuria and Denies vaginal discharge Musculoskeletal Musculoskeletal: Denies myalgias and Denies arthralgias Integumentary/Breasts Skin/Breast: Denies rash Neurologic Neurologic: Denies behavioral changes Psychiatric Psychiatric: Denies behavioral changes Hematologic/Lymphatic Hematologic/Lymphatic: Denies easy bleeding and Denies easy bruising Patient History Medical History (Updated 10/14/19 @ 06:01 by Jonny Archer DO) Anxiety (Acute) Back pain (Acute) Depression (Acute) Pancreatitis (Acute) Social History household members: other Smoking Status: Current every day smoker alcohol intake: current Smoking Status: Current every day smoker tobacco type: cigarettes alcohol intake frequency: 0-2 drinks per day Alcohol type: hard liquor Substance Use Type: marijuana Exam Initial Vital Signs Initial Vital Signs: Vital Signs Temperature 98.2 F 10/14/19 01:36 Pulse Rate 93 H 10/14/19 01:36 Respiratory Rate 16 10/14/19 01:36 Blood Pressure 160/105 H 10/14/19 01:36 Pulse Oximetry 98 10/14/19 01:36 Const General: cooperative and comfortable Limitations: mental status not altered HENMT Head: normal to inspection and normocephalic Cardio Rate: regular rate GI Inspection: non-distended Palpation: soft, No firm and tender (Epigastrium) Skin Lesions: no lesions Rashes: no rashes Neuro General: alert and awake Cognition: normal cognition Speech: speech normal Extrem General: normal to inspection and capillary refill normal Psych Appearance: grossly normal and well kempt Scores GCS Baring coma scale eye opening: Spontaneous Baring coma scale verbal response: Orientated Dara coma scale motor response: Obey commands Dara coma scale total score: 15 Course Orders Ordered: ED Orders 10/14/19 01:51 Urine Drug Screen, Rapid Stat 10/14/19 01:59 Complete Blood Count AUTO DIFF Stat Comprehensive Metabolic Panel Stat Ethanol (ETOH) Stat Lipase Stat Test Serum,Qual Stat 10/14/19 02:44 CT abdomen pelvis w con Stat Sodium Chloride (Normal Saline 0.9%) 1,000 mls @ 150 mls/hr IV CONT ALINE Last Admin: 10/14/19 02:07 Dose: 150 mls/hr Documented by: MATEO Discontinued Medications Al Hydrox/Mg Hydrox/Simethicone 20 ml/ Lidocaine HCl 15 ml 0 ml PO NOW ONE Stop: 10/14/19 04:39 Last Admin: 10/14/19 04:46 Dose: 45 ml Documented by: MATEO Ketorolac Tromethamine (Toradol) 30 mg IV NOW ONE Stop: 10/14/19 01:51 Last Admin: 10/14/19 02:07 Dose: 30 mg Documented by: MATEO Ondansetron HCl (Zofran) 4 mg IV NOW ONE Stop: 10/14/19 02:01 Last Admin: 10/14/19 02:07 Dose: 4 mg Documented by: MATEO Ondansetron HCl (Zofran Odt Prepack) 1 bottle MISC SEEINSTR ONE Stop: 10/14/19 05:54 Pantoprazole Sodium (Protonix) 40 mg IV NOW ONE Stop: 10/14/19 02:30 Last Admin: 10/14/19 02:33 Dose: 40 mg Documented by: MATEO Tramadol HCl (Ultram 50mg Prepack) 1 bottle MISC SEEINSTR ONE Stop: 10/14/19 05:54 Vital Signs Vital signs: Vital Signs - 8 hr 10/14/19 01:36 10/14/19 03:54 10/14/19 04:00 Temperature 98.2 F Pulse Rate 93 H 76 74 Respiratory Rate 16 18 18 Blood Pressure 160/105 H Blood Pressure [Left Arm] 138/96 H 154/94 H Pulse Oximetry 98 95 95 Medical Decision Making Medical Records Medical records reviewed: Yes I reviewed the patient's medical records. Lab Data Lab results reviewed: Yes I reviewed the patient's lab results. Result diagrams: 10/14/19 01:59 10/14/19 01:59 Labs: Lab Results 10/14/19 10/14/19 10/14/19 Range/Units 01:59 01:59 01:59 WBC 9.0 (4.5-11.0) X10^3/uL RBC 4.76 (4.0-5.2) X10^6/uL Hgb 15.6 (12.0-16.0) g/dL Hct 46.1 H (36-46) % MCV 96.9 (80-100) fL MCH 32.8 (26-34) PG MCHC 33.8 (30-36) % RDW 14.0 (11.6-14.8) % Plt Count 210 (150-400) X10^3/uL Neut % (Auto) 80.5 H (50-75) % Lymph % (Auto) 11.0 L (25-40) % [place] % (Auto) 7.2 (3-14) % Eos % (Auto) 0.8 L (2-4) % Baso % (Auto) 0.5 (0-2) % Neut # (Auto) 7300 H (1451-4182) /uL Lymph # (Auto) 1000 L (8179-2938) /uL [place] # (Auto) 700 (0-900) /uL Eos # (Auto) 100 (0-450) /uL Baso # (Auto) 0 (0-100) /uL Sodium 143 (137-145) mmol/L Potassium 3.3 L (3.4-5.1) mmol/L Chloride 106 (98-107) mmol/L Carbon Dioxide 25 (22-32) mmol/L BUN 6 L (7-17) mg/dL Creatinine 0.43 L (0.52-1.04) mg/dL Estimated GFR > 60.0 (>60) mL/min BUN/Creatinine Ratio 14.0 (6-22) Glucose 101 H (70-100) mg/dL Calcium 9.3 (8.4-10.2) mg/dL Total Bilirubin 2.8 H (0.2-1.3) mg/dL AST 71 H (14-36) IU/L ALT 66 H (<35) IU/L Alkaline Phosphatase 98 (38-126) U/L Total Protein 7.7 (6.3-8.2) g/dL Albumin 4.5 (3.5-5.0) g/dL Globulin 3.2 (1.7-4.1) g/dL Albumin/Globulin Ratio 1.4 (1.0-2.8) Lipase 374 H (23-300) U/L Serum , Qual Negative (Negative) Ethyl Alcohol 65 H ( - 10) mg/dL Imaging Data CT scan - abdomen/pelvis: Radiologist's Impression: Low grade acute pancreatitis Hepatic steatosis Ascites MDM Narrative Medical decision making narrative: Patient is nontoxic appearing however upon my initial evaluation she did vomit. Was given Zofran and Protonix. Lipase is unremarkable. LFTs are slightly elevated however this appears to be baseline for her. Her alcohol level is slightly elevated consistent with her admitting to drinking alcohol than the past [address] scan shows inflammation around the pancreas which is concerning for early pancreatitis. Most likely from her alcohol use. Patient did get some relief from the Protonix and the GI cocktail however not completely gone. Was able to tolerate oral intake without any pain. Had a discussion with her regarding her symptoms. We did discuss admitting her to the hospital for pain and nausea control versus sending her home with these with a clear liquid diet as tolerated. Patient states that she would like to be discharged home and not be admitted to the hospital. I do not feel this is unreasonable given her clinical presentation and her labs and her CT scan. She was given phone numbers to contact to establish a primary provider in the area. She was given strict return precautions. She expressed understanding and agreement. Discharge Plan Departure Patient Disposition: Home Clinical Impression: Acute pancreatitis Qualifiers: Pancreatitis type: alcohol induced Acute pancreatitis complication: unspecified Qualified Code(s): K85.20 - Alcohol induced acute pancreatitis without necrosis or infection Abdominal pain Qualifiers: Abdominal location: epigastric Qualified Code(s): R10.13 - Epigastric pain Instructions: Acute Pancreatitis, Alcohol Use Disorder Activity Restrictions/Additional Instructions: Use the nausea and pain medication as needed. Recommend you contact the health human resources project coordinator here at the hospital at [phone]. They can help you establish a primary provider. No driving for the next 24 hours or in the future if you drink alcohol. I do suspect that your alcohol use is causing your pancreatitis issues. Recommend a bland clear liquid diet as tolerated until you have no pain and then you can advance your diet as tolerated. [facility] for any new or worsening symptoms like we discussed. Prescriptions: No Action gabapentin 400 mg Capsule 400 mg PO TID RF: 0 sennosides-docusate sodium [Senna with Docusate Sodium] 8.6-50 mg Tablet 1 tab PO DAILY RF: 0 topiramate 50 mg Tablet 50 mg PO BEDTIME PRN (Reason: insomnia) RF: 0 melatonin 5 mg Capsule 5 mg PO BEDTIME RF: 0 oxycodone 5 mg capsule 5 mg PO Q8H PRN (Reason: pain) Qty: 15 RF: 0
[2019-10-14] MEDS: SODIUM CHLORIDE 0.9% 1,000 ML 150 ML IV (02:07)
[2019-10-14] MEDS: KETOROLAC 60 MG/2 ML VIAL 30 MG IV (02:07)
[2019-10-14] MEDS: ONDANSETRON 4 MG/2 ML INJ IV (02:07)
[2019-10-14 02:19] LABS: Add Manual Diff / Slide Review NO; Basophils Absolute Auto 0 /uL (0-100); Basophils Percent Auto 0.5 % (0-2); Eosinophils Absolute Auto 100 /uL (0-450); Eosinophils Percent Auto 0.8 % (2-4); Hematocrit 46.1 % (36-46); Hemoglobin 15.6 g/dL (12.0-16.0); Lymphocytes Absolute Auto 1000 /uL (1100-4500); Mean Corpuscular HGB Conc 33.8 % (30-36); Mean Corpuscular Hemoglobin 32.8 PG (26-34); Mean Corpuscular Volume 96.9 fL (80-100); Monocytes Absolute Auto 700 /uL (0-900); Monocytes Percent Auto 7.2 % (3-14); Neutrophils Absolute Auto 7300 /uL (1500-7000); Neutrophils Percent Auto 80.5 % (50-75); Platelet Count 210 X10^3/uL (150-400); Red Blood Cell Count 4.76 X10^6/uL (4.0-5.2)
[2019-10-14 02:23] LABS: Alanine Aminotransferase 66 IU/L (<35); Albumin 4.5 g/dL (3.5-5.0); Albumin Globulin Ratio 1.4 (1.0-2.8); Alkaline Phosphatase 98 U/L (38-126); Bilirubin Total 2.8 mg/dL (0.2-1.3); Blood Urea Nitrogen 6 mg/dL (7-17); Calcium 9.3 mg/dL (8.4-10.2); Carbon Dioxide 25 mmol/L (22-32); Chloride 106 mmol/L (98-107); Estimated Glomerular Filt Rate > 60.0 mL/min (>60); Ethanol (ETOH) 65 mg/dL; Globulin 3.2 g/dL (1.7-4.1); Glucose 101 mg/dL (70-100); HEMOLYSIS < 15 (0-50); Lipase 374 U/L (23-300); Potassium 3.3 mmol/L (3.4-5.1); Sodium 143 mmol/L (137-145); Total Protein 7.7 g/dL (6.3-8.2)
[2019-10-14 02:32] LABS: Aspartate Aminotransferase 71 IU/L (14-36)
[2019-10-14] MEDS: PANTOPRAZOLE 40 MG VIAL IV (02:33)
--- NOTE | 2019-10-14 02:44 | DI.CT.S_ITS ---
PROCEDURE: CT ABDOMEN PELVIS W CON INDICATIONS: Epigastric abdominal pain, history of pancreatitis, lipase n TECHNIQUE: After the administration of intravenous contrast, 5 mm thick sections acquired from the diaphragm to the symphysis. 5 mm coronal and sagittal reformats were acquired. For radiation dose reduction, the following was used: automated exposure control, adjustment of mA and/or kV according to patient size. COMPARISON: None. FINDINGS: Image quality: Excellent. ABDOMEN: Lung bases: Lung bases are clear. Heart size is normal. Solid organs: Diffuse hepatic steatosis. No focal liver mass. Gallbladder is unremarkable. Biliary system is non dilated. Pancreas enhances normally. Minimal peripancreatic inflammatory change. Spleen is normal in size and enhancement. No adrenal nodules. Kidneys demonstrate normal size and enhancement, without hydronephrosis. Peritoneum and bowel: Mild jejunal wall thickening and mild prominence of the jejunal loops, which have multiple air fluid levels. No transition point noted.. Small amount of pelvic ascites. Nodes and vessels: No retroperitoneal or mesenteric adenopathy by size criteria. Aorta and inferior vena cava are normal in size. Miscellaneous: Small periumbilical hernia containing fat. PELVIS: Genitourinary: Bladder wall thickness is normal. Miscellaneous: No inguinal adenopathy. No inguinal hernias. 4.9 x 3.1 cm left adnexal cyst. Bones: No suspicious bony lesions. No vertebral body compression fractures. Remote T12 corpectomy and interbody fusion and posterior and left lateral thoracolumbar fusion IMPRESSION: 1. Findings are consistent with mild changes of acute pancreatitis. 2. Hepatic steatosis. 3. Ascites. 4. 4.7 x 3.1 cm left adnexal cyst. 5. Mild adrenal wall thickening with mild prominence of the jejunum and air fluid levels. Findings may potentially represent focal ileus. Enteritis is not excluded. Comment: Final report is concordant with preliminary interpretation provided by [facility]. Dictated by: Donovan Connor M.D. on 10/14/2019 at 7:09 Approved by: Donovan Connor M.D. on 10/14/2019 at 7:17
[2019-10-14 03:00] LABS: Pregnancy Test Serum,Qual Negative (Negative)
[2019-10-14 03:54] VITALS: BP 138/96; PULSE 76; RESP 18; O2SAT 95
[2019-10-14 04:00] VITALS: BP 154/94; PULSE 74; RESP 18; O2SAT 95
[2019-10-14] MEDS: MAG HYDROX/ALUMINUM/SIMETH SUS 20 ML, LIDOCAINE VISCOUS 2% 15 ML PO (04:46)
[2019-10-14] MEDS: TRAMADOL 50 MG PREPACK 1 BOTTLE MISC (06:10)
[2019-10-14] MEDS: ONDANSETRON 4 MG ODT PREPACK 1 BOTTLE MISC (06:10)
[2019-10-14 06:15] VITALS: BP 131/85; PULSE 92; RESP 18; TEMP 36.7; O2SAT 96
== END 2019-10-14 06:16 | disposition home or self-care (01) ==
PROVIDERS: Emergency Provider Emergency Medicine
DX: K85.20 Alcohol induced acute pancreatitis without necrosis or infection (principal); R10.13 Epigastric pain
CPT/HCPCS: 36415; 74177; 80053; 80320; 83690; 84703; 85025; 96361; 96374; 96375; 99284; C9113; J1885; J2405